=== PATIENT | male | born 1945 | race Caucasian/White ===

== ENCOUNTER 2016-12-11 12:06 | Inpatient (IN) | payer OTHER, MEDICARE ==
[~2016-12-11] VITALS: Ht 180.3 cm; Wt 90.7 kg
[~2016-12-11 12:06] MED LIST: ACTOPLUS MET 851 TAB PO; FLOMAX(MONOGRA0.4 MG PO; KEFLEX500 MG PO; LOSARTAN POTASS50 MG PO; NORVASC 5MG TAB5 MG PO; PERCOCET 325 MG1 TA2 PO; PIOGLITAZONE PO; SIMVASTATIN10 MG PO
--- NOTE | 2016-12-11 12:10 | NUR ---
BS 335
--- NOTE | 2016-12-11 12:14 | NUR ---
PT STATES HIS BS IS HIGH 335 IN TRIAGE. PT STATSE HE WAS SHAKING AND HIS DID HIS BS AND HE WAS OVER 300. PT STATES HE IS CURRENTLY TAKING ACTOS PLUS.
--- NOTE | 2016-12-11 12:21 | NUR ---
PT MEDICATED FOR FEVER IN TRIAGE PT C/O FREQUENT URINATION GIVEN CUP FOR SPEC.
--- NOTE | 2016-12-11 13:26 | NUR ---
APPRECIATE TRIAGE NOTE. PT AMBUALTORY TO ROOM 16. BLOOD DRAW IN PROGRES AT THIS TIME.
--- NOTE | 2016-12-11 13:36 | NUR ---
ASHLEY MELGOZA TO BEDSIDE FOR EVAL.
--- NOTE | 2016-12-11 13:41 | NUR ---
BLOOD DRAWN AND SENT TO LAB BY THIS MST. SST, LAV, BLUE, MAC
[2016-12-11 13:49] LABS: ABSOLUTE BASOPHIL COUNT 0 /CUMM (0.0-0.2); ABSOLUTE EOSINOPHIL COUNT 0 /CUMM (0.0-0.7); ABSOLUTE GRANULOCYTE CT 2.6 /CUMM (1.4-6.5); ABSOLUTE LYMPH COUNT 0.3 /CUMM (1.2-3.4); ABSOLUTE MONOCYTE COUNT 0.5 /CUMM (0.10-0.60); BASOPHIL % 0.4 % (0.0-2.0); EOSINOPHIL % 0.1 % (0-5); GRANULOCYTE % 76.9 % (42.2-75.2); HEMATOCRIT 31.2 % (42-52); MEAN CORPUSCULAR HGB 30.2 PG (27.0-31.0); MEAN CORPUSCULAR HGB CONC 34.2 G/DL (33.0-37.0); MEAN CORPUSCULAR VOLUME 88.4 FL (80.0-94.0); MEAN PLATELET VOLUME 9.9 FL (7.4-10.4); PLATELET COUNT 93 /CUMM (130-400); RBC DISTRIBUTION WIDTH 14.2 % (11.5-14.5); RED BLOOD CELL CT 3.52 /CUMM (4.70-6.10); WHITE BLOOD CELL COUNT 3.3 /CUMM (4.8-10.8)
[2016-12-11] MEDS ORDERED: AMLODIPINE BESYL5 M1 PO (14:14)
[2016-12-11] MEDS ORDERED: SIMVASTATIN10 M1 PO (14:14)
[2016-12-11] MEDS ORDERED: MYRBETRIQ25 M1 PO (14:15)
[2016-12-11] MEDS ORDERED: ELIQUIS5 M1 PO (14:15)
[2016-12-11] MEDS ORDERED: BENICAR40 M1 PO (14:16)
[2016-12-11] MEDS ORDERED: ACTOPLUS MET 11 EAC1 PO (14:16)
[2016-12-11] MEDS ORDERED: FINASTERIDE5 M1 PO (14:17)
--- NOTE | 2016-12-11 14:52 | NUR ---
PT AMBULATORY MULTIPLE TIMES TO BATHROOM. APPEARS ANXIOUS.
--- NOTE | 2016-12-11 15:42 | NUR ---
PT COMPLAINING OF FEELING VERY COLD, NOTED TO BE SHAKING AT THIS TIME. PT PROVIDED WITH MULTIPLE BLANKETS FOR COMFORT. TEMP 100.8 AT THIS TIME, ASHLEY MELGOZA UPDATED.
--- NOTE | 2016-12-11 16:11 | ED GENERAL ADULT ---
History of Present Illness General Chief Complaint: General Adult Stated Complaint: STATES BS HIGH WEAKNESS FEVER Source: patient, family, old records Exam Limitations: no limitations Vital Signs & Intake/Output Vital Signs & Intake/Output Vital Signs Date Time Temp Pulse Resp B/P Pulse O2 O2 Flow FiO2 Ox Delivery Rate 12/11 1543 100.8 12/11 1444 100.0 68 18 173/76 98 Room Air 12/11 1220 102.2 12/11 1216 102.2 90 16 162/84 98 Room Air Allergies Coded Allergies: venom-honey bee (BEE VENOM (HONEY BEE)) (Severe, ANAPHYLAXIS 11/30/15) aspirin (SWOLLEN FACE - CANT SEE 11/30/15) hornet venom (ANAPHYLAXIS 12/11/16) Reconcile Medications Amlodipine Besylate 5 MG TABLET 1 TAB PO DAILY HEART/BP (Reported) Apixaban (Eliquis) 5 MG TABLET 1 TAB PO BID BLOOD THINNER (Reported) Finasteride 5 MG TABLET 1 TAB PO DAILY PROSTATE (Reported) Mirabegron (Myrbetriq) 25 MG TAB.ER.24H 1 TAB PO DAILY BLADDER (Reported) Olmesartan Medoxomil (Benicar) 40 MG TABLET 1 TAB PO DAILY BP (Reported) Pioglitazone HCl/Metformin HCl (Actoplus Met 15 MG-850 MG Tab) 15 MG-850 MG TABLET 1 TAB PO BID DM (Reported) Simvastatin (Simvastatin*) 10 MG TABLET 1 TAB PO QHS CHOLESTEROL (Reported) Triage Note: PT STATES HIS BS IS HIGH 335 IN TRIAGE. PT STATSE HE WAS SHAKING AND HIS DID HIS BS AND HE WAS OVER 300. PT STATES HE IS CURRENTLY TAKING ACTOS PLUS Triage Nurses Notes Reviewed? yes Onset: Abrupt Duration: day(s): (few), constant, getting worse Timing: recent history Injury Environment: home No Modifying Factors: none HPI: 71-year-old male comes into emergency room with complaints of shaking chills body aches chills and some joint pain. Symptoms began going on for the past few days. Denies any cough runny nose congestion. Patient has had an increased frequency with urination. Nothing seems to make the symptoms better. Symptoms have gotten progressively worse today. No tick bites that he is aware of. (MARIELLE HARRY) Past History Travel History Traveled to [place] past 21 day No Medical History Any Pertinent Medical History? see below for history Neurological: NONE EENT: NONE Cardiovascular: AFIB, CAD, hypertension, hyperlipidemia, SICK SINUS SYNDROME Respiratory: NONE Gastrointestinal: NONE Hepatic: NONE Renal: nephrolithiasis Musculoskeletal: osteoarthritis, HAIRLINE FRACTURES RIBS Psychiatric: NONE Endocrine: diabetes Blood Disorders: NONE Cancer(s): NONE Other Medical Hx: BPH Surgical History Surgical History: hernia repair-incisional, PACEMAKER LITHOTRIPSY Psychosocial History Who do you live with Spouse What is your primary language Faroese Tobacco Use: Never used ETOH Use: denies use Illicit Drug Use: denies illicit drug use Family History Hx Contributory? No (MARIELLE HARRY) Review of Systems Review of Systems Constitutional: Reports: see HPI. EENTM: Reports: no symptoms. Respiratory: Reports: no symptoms. Cardiovascular: Reports: no symptoms. GI: Reports: no symptoms. Genitourinary: Reports: see HPI. Musculoskeletal: Reports: see HPI. Skin: Reports: no symptoms. Neurological/Psychological: Reports: no symptoms. Hematologic/Endocrine: Reports: no symptoms. Immunologic/Allergic: Reports: no symptoms. All Other Systems: Reviewed and Negative (MARIELLE HARRY) Physical Exam Physical Exam General Appearance: well developed/nourished, alert, awake, mild distress Head: atraumatic, normal appearance Eyes: Bilateral: normal appearance, EOMI. Ears, Nose, Throat: normal pharynx, normal ENT inspection, hearing grossly normal Neck: normal inspection, full range of motion Respiratory: normal breath sounds, no respiratory distress Cardiovascular: regular rate/rhythm, tachycardia Gastrointestinal: soft Back: normal inspection Extremities: normal inspection, normal range of motion, no edema Neurologic/Psych: awake, alert, oriented x 3, normal gait Skin: intact, normal color Core Measures ACS in differential dx? No CVA/TIA Diagnosis: No Severe Sepsis Present: No Septic Shock Present: No (MARIELLE HARRY) Progress Differential Diagnoses I considered the following diagnoses in my evaluation of the patient: Ehrlichia chaffeensis, and human granulocytic anaplasmosis , Lyme disease, sepsis, viral syndrome, [place] spotted fever, Plan of Care: Orders Procedure Date/time Status Regular Diet 12/11 D Active Patient Data 12/11 161 Active OXYGEN SETUP (GEN) 12/11 161 Active Saline Lock 12/11 161 Active Admit to inpatient 12/11 161 Active Vital Signs 12/11 1613 Active Activity/Ambulation 12/11 1613 Active Code Status 12/11 1613 Active Add-on Test (ER Only) 12/11 1610 Active RAPID VIRAL INFLUENZA A 12/11 1339 Complete BLOOD CULTURE 12/11 1332 Active EKG 12/11 1332 Active TROPONIN LEVEL 12/11 1238 Complete LACTIC ACID 12/11 1238 Complete COMPREHENSIVE METABOLIC PANEL 12/11 1238 Complete CBC WITHOUT DIFFERENTIAL 12/11 1238 Complete URINALYSIS 12/11 1228 Complete Current Medications Sig/Titus Start time Last Medication Dose Stop Time Status Admin Doxycycline Hyclate 100 MG ONCE ONE 12/11 1615 AC (Vibramycin) 12/11 1720 Sodium Chloride 100 ML (Normal Saline 0.9%) Laboratory Tests 12/11/16 1334: Anion Gap 11, Estimated GFR > 60, BUN/Creatinine Ratio 19.1, Glucose 310 H, Lactic Acid 1.2, Calcium 9.1, Total Bilirubin 0.9, AST 35, ALT 47, Alkaline Phosphatase 102, Troponin I 0.01, Total Protein 6.2 L, Albumin 3.7, Globulin 2.5, Albumin/Globulin Ratio 1.5, CBC w Diff NO MAN DIFF REQ, RBC 3.52 L, MCV 88.4, MCH 30.2, RDW 14.2, MPV 9.9, Gran % 76.9 H, Lymphocytes % 7.8 L, Monocytes % 14.8 H, Eosinophils % 0.1, Basophils % 0.4, Absolute Granulocytes 2.6, Absolute Lymphocytes 0.3 L, Absolute Monocytes 0.5, Absolute Eosinophils 0 , Absolute Basophils 0, PUBS MCHC 34.2 12/11/16 1332: Lactic Acid Cancelled, Troponin I Cancelled 12/11/16 1236: Urinalysis LIGHT H, Urine Color YEL, Urine Clarity CLEAR, Urine pH 6.0, Ur Specific [place] 1.010, Urine Protein TRACE H, Urine Ketones TRACE H, Urine Nitrite NEG, Urine Bilirubin NEG, Urine Urobilinogen 0.2, Ur Leukocyte Esterase NEG, Ur Microscopic SEDIMENT EXAMINED, Urine RBC 1-3, Urine Bacteria RARE H, Urine Hemoglobin TRACE-INTACT H, Urine Glucose >=1000 H Microbiology 12/11 1424 NASOPHARYN: Influenza Virus A & B Rapid Smear - COMP 12/11 1356 BLOOD: Blood Culture - RECD 12/11 1342 BLOOD: Blood Culture - RECD Initial ED EKG: rate (60), pacemaker rhythm (MARIELLE HARRY) Departure Departure Disposition: STILL A PATIENT Condition: Stable Clinical Impression Primary Impression: Ehrlichiosis Secondary Impressions: Anemia, Leukopenia, Thrombocytopenia Referrals: TISHA WAGNER MD (PCP/Family) Departure Forms: Customer Survey General Discharge Information Admission Note Spoke With: TISHA WAGNER MD Documentation of Exam: Documentation of any treatments & extenuating circumstances including Concerns Regarding Discharge (functional status, medication knowledge or non-compliance, living conditions, etc.) that warrant an admission rather than observation: I feel this patient likely has Ehrlichia chaffeensis or human granulocytic anaplasmosis or minus disease. Patient will require IV doxycycline. Patient is febrile. Clinically does not look well. Patient do poorly as an outpatient. I feel patient required infectious disease consultation. IV fluids. Patient is thrombocytopenic. Repeat labs. Patient would do poorly as an outpatient. (MARIELLE HARRY) PA/DANCE ENTERTAINER Co-Sign Statement Statement: ED Attending supervision documentation- x I saw and evaluated the patient. I have also reviewed all the pertinent lab results and diagnostic results. I agree with the findings and the plan of care as documented in the PA's/DANCE ENTERTAINER's documentation. [] I have reviewed the ED Record and agree with the PA's/DANCE ENTERTAINER's documentation. [] Additions or exceptions (if any) to the PAs/DANCE ENTERTAINER's note and plan are summarized below: [] (SERGO BROWN,DORITA) Critical Care Note Critical Care Note Critical Care Time: non-applicable (MARIELLE HARRY)
--- NOTE | 2016-12-11 16:17 | NUR ---
PHARMACY CALLED FOR ANTIBIOTICS.
--- NOTE | 2016-12-11 17:04 | NUR ---
HOUSE STAFF TO BEDSIDE FOR EVAL.
--- NOTE | 2016-12-11 17:56 | NUR ---
PT HAS BED ASSIGNMENT 219-1. RN NOTIFIED.
--- NOTE | 2016-12-11 18:15 | History & Physical ---
See Addendum HECTOR BROWNSRAVAN 12/11/16 1180: General Information and HPI History of Present Illness: 71 year old man with past medical history of atrial fibrillation on eliquis, sick sinus syndrome s/p AICD, CAD, HTN, HLD, Nephrolithiasis, osteoarthritis, and NIDDM seen for evaluation of weakness, chills, and urinary frequency. Patient reports intermittent periods of fatigue, weakness and chills over the past 3 days. He noticed two "bites" on his body approximately one week ago that have improved in appearance but are still present and charactized and nonpainful but itchy. There is no reported drainage, or witnessed bug/vector, rash, or retained debris. 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 He denies any recent known tick bite. He denies any recent travel, new medications, or sick contacts. Otherwise he denies any blurred/double vision, lightheadedness/dizziness, neck stiffness, headache, chest pain, palpitations, shortness of breath, cough, nausea, vomiting, diarrhea. Allergies/Medications Allergies: Coded Allergies: venom-honey bee (BEE VENOM (HONEY BEE)) (Severe, ANAPHYLAXIS 11/30/15) aspirin (SWOLLEN FACE - CANT SEE 11/30/15) hornet venom (ANAPHYLAXIS 12/11/16) Home Med list Amlodipine Besylate 5 MG TABLET 1 TAB PO DAILY HEART/BP (Reported) Apixaban (Eliquis) 5 MG TABLET 1 TAB PO BID BLOOD THINNER (Reported) Finasteride 5 MG TABLET 1 TAB PO DAILY PROSTATE (Reported) Mirabegron (Myrbetriq) 25 MG TAB.ER.24H 1 TAB PO DAILY BLADDER (Reported) Olmesartan Medoxomil (Benicar) 40 MG TABLET 1 TAB PO DAILY BP (Reported) Pioglitazone HCl/Metformin HCl (Actoplus Met 15 MG-850 MG Tab) 15 MG-850 MG TABLET 1 TAB PO BID DM (Reported) Simvastatin (Simvastatin*) 10 MG TABLET 1 TAB PO QHS CHOLESTEROL (Reported) Past History Travel History Traveled to [place] past 21 day No Medical History Neurological: NONE EENT: NONE Cardiovascular: AFIB, CAD, hypertension, hyperlipidemia, SICK SINUS SYNDROME Respiratory: NONE Gastrointestinal: NONE Hepatic: NONE Renal: nephrolithiasis Musculoskeletal: osteoarthritis, HAIRLINE FRACTURES RIBS Psychiatric: NONE Endocrine: diabetes Blood Disorders: NONE Cancer(s): NONE Other Medical Hx: BPH Surgical History Surgical History: hernia repair-incisional, PACEMAKER LITHOTRIPSY Past Family/Social History Psychosocial History Where do you live? Home Who Do You Live With? spouse ETOH Use: denies use Illicit Drug Use: denies illicit drug use Review of Systems Review of Systems Constitutional: Reports: see HPI. Exam & Diagnostic Data Last 24 Hrs of Vital Signs/I&O Vital Signs Date Time Temp Pulse Resp B/P Pulse O2 O2 Flow FiO2 Ox Delivery Rate 12/11 2040 60 120/55 12/11 1926 100.3 71 20 112/50 94 Room Air 12/11 1842 100.6 70 18 125/61 96 Room Air 12/11 1633 102.7 81 18 176/78 100 Room Air 12/11 1543 100.8 12/11 1444 100.0 68 18 173/76 98 Room Air 12/11 1220 102.2 12/11 1216 102.2 90 16 162/84 98 Room Air Intake & Output 12/11 1600 12/11 0800 12/11 0000 Intake Total 1000 Output Total Balance 1000 Intake, IV 1000 Patient 90.718 kg Weight Physical Exam General Appearance Alert, Oriented X3, Cooperative, No Acute Distress Skin 0.5cm circular lesion with mild erythema on left back/flank and similar lesion on suprapubic region HEENT Atraumatic, EOMI, Mucous Membr. moist/pink Neck Supple Cardiovascular Normal S1, Normal S2, No Murmurs Lungs Clear to Auscultation, Normal Air Movement Abdomen Normal Bowel Sounds, Soft, No Tenderness, No Hepatospenomegaly, No Masses Neurological Normal Speech, Strength at 5/5 X4 Ext, Normal Tone, Sensation Intact, Cranial Nerves 3-12 NL Extremities No Clubbing, No Cyanosis, No Edema, Normal Pulses, No Tenderness/ Swelling Vascular Normal Pulses, Pulses Symmetrical Last 24 Hrs of Labs/Kan: Laboratory Tests 12/11/16 1632: Lactic Acid Cancelled 12/11/16 1334: Anion Gap 11, Estimated GFR > 60, BUN/Creatinine Ratio 19.1, Glucose 310 H, Hemoglobin A1c Pending, Lactic Acid 1.2, Calcium 9.1, Total Bilirubin 0.9, AST 35, ALT 47, Alkaline Phosphatase 102, Troponin I 0.01, Total Protein 6.2 L, Albumin 3.7, Globulin 2.5, Albumin/Globulin Ratio 1.5, CBC w Diff NO MAN DIFF REQ, RBC 3.52 L, MCV 88.4, MCH 30.2, RDW 14.2, MPV 9.9, Gran % 76.9 H, Lymphocytes % 7.8 L, Monocytes % 14.8 H, Eosinophils % 0.1, Basophils % 0.4, Absolute Granulocytes 2.6, Absolute Lymphocytes 0.3 L, Absolute Monocytes 0.5, Absolute Eosinophils 0, Absolute Basophils 0, PUBS MCHC 34.2 12/11/16 1332: Lactic Acid Cancelled, Troponin I Cancelled 12/11/16 1236: Urinalysis LIGHT H, Urine Color YEL, Urine Clarity CLEAR, Urine pH 6.0, Ur Specific [place] 1.010, Urine Protein TRACE H, Urine Ketones TRACE H, Urine Nitrite NEG, Urine Bilirubin NEG, Urine Urobilinogen 0.2, Ur Leukocyte Esterase NEG, Ur Microscopic SEDIMENT EXAMINED, Urine RBC 1-3, Urine Bacteria RARE H, Urine Hemoglobin TRACE-INTACT H, Urine Glucose >=1000 H Microbiology 12/11 1424 NASOPHARYN: Influenza Virus A & B Rapid Smear - COMP 12/11 1356 BLOOD: Blood Culture - RECD 12/11 1342 BLOOD: Blood Culture - RECD Diagnostic Data EKG Results Paced rhythm Assessment/Plan Assessment: 71 year old man with multiple medical problems significant for an extensive cardiovascular history and occupational exposure to outdoors seen for evaluation of vague systemic complaints consisting of chills, weakness, urinary frequency without pain. Patient was found to be febrile to 102.7 max and hypertensive but other had vitals within normal limits. Patient has a history of BPH but had a normal urinalysis. Given his exposure the outdoors it is possible that patient has contracted a tickborne illness, but alternative diagnoses such as prostatis or an unidentified infection should be considered. Patient is to be admitted to the general medicine floor for further evaluation. Weakness/Chills/Urinary Frequency/Fever, Possible Tick Borne Illness/ Thrombocytopenia Patient with chills and weakness found to be febrile to 102.7 in the ED. Patient was empirically started on intravenous Doxycycline by ED staff for suspicion of a tick borne illness given patients vague symptoms and thromboycytopenia and his history of exposure to outdoors. Patient denies any known tick bites. -General Medicine -Doxycyline 100mg IV Daily -ID Consult -Daily CBC Hypertension -Amlodipine 5mg PO Daily -Losartan 100mg PO Daily Non-insulin Dependent Diabetes Mellitus -Accuchecks TIDAC/HS -Hold oral hypoglycemics -Novolog SSI -Levemir 9 units SC BID Atrial Fibrillation on Eliquis, SSS s/p PM, CAD-Eliquis 5mg PO BID Hyperlipidemia-Atorvastatin 5mg PO Daily BPH/History of Nephrolithiasis-Finasteride 5mg PO Daily Pain Plan-Acetaminophen Diet- Diabetic Diet DVT Ppx-ALPS Code Status- FULL CODE As Ranked By This Provider Problem List: 1. Thrombocytopenia Core Measures/Miscellaneous Acute Coronary Syndrome ACS Diagnosis: No Cerebrovascular Accident CVA/TIA Diagnosis: No Congestive Heart Failure CHF Diagnosis: No Venous Thromboembolism VTE Risk Factors: Acute medical illness, Age > 40 No [facility] VTE prophylaxis d/t: No contraindications No VTE Pharm Prophylaxis d/t: Platelets below ref range VTE Diagnosis: No VTE Type: NONE VTE Confirmed by (Test): NONE Severe Sepsis Severe Sepsis Present: No Septic Shock Septic Shock Present: No Miscellaneous Documentation Attending Case Discussed With: TISHA WAGNER MD Primary Care Physician: TISHA WAGNER MD Patient sees these Specialists Dr Shady Cifuentes Level of Patient Care: General Medicine Consults Needed: Consulting Specialty: Infectious Disease SIXTO BROWNPRATEEK 12/11/16 1851: Resident Review Statement Resident Statement: examined this patient, discussed with video editing intern, agreed with video editing intern, discussed with family, reviewed EMR data (avail), discussed with nursing , discussed with case mgmt, reviewed images, amended to note Other Findings: Mayur is a 71-year-old man with a history of atrial fibrillation sick sinus syndrome, status post pacemaker. He expresses history of 24-hour history of febrile illness shaking tremors. He expresses some history of tick exposure in the past, and 2 blood bites, one in the suprapubic area, and the other in the left flank area of the back region. There is no rash. He denies any arthralgias. Or any other symptoms such as cough shortness of breath, abdominal discomfort nausea vomiting diarrhea, dysuria. By the patient's own account, he is a noncompliant diabetic. He never checks his blood sugars except when he sees his doctor. He is only on Actos. Urinalysis reveals significant glucosuria. Patient also endorses history of prior frequency without urgency. Plan: Admit the patient general medicine. Await blood cultures, and tickborne illness serologies. Await infectious disease consultation. Continue doxycycline in the meantime. Tylenol for significant fever greater than 101F. Supportive treatment. Check hemoglobin A1c. DVT prophylaxis. Full code.
--- NOTE | 2016-12-11 19:06 | NUR ---
REPORT GIVEN TO NIKKY PARKINSON. [facility]RIBUT[facility] CALLED FOR PT TRANSPORT.
--- NOTE | 2016-12-11 19:11 | Admission Certification ---
Admission Certification Certification Statement - As attending physician, I certify that at the time of - admission, based on clinical presentation, severity of - symptoms, need for further diagnostic testing and - therapeutic interventions, and risk of adverse outcomes - without in-hospital treatment, in my clinical assessment, - this patient requires an acute hospital stay for a minimum - of two nights or longer. I have also considered psychsocial - factors such as support system, advanced age, financial - issues, cognitive issues, and failed out-patient treatments, - past re-admission history, safety of patient, and lack of - compliance as applicable. Specific rationale supporting this admission is: weakness,fever low white count and platelets elevated sugars possible tick bourne disease.
--- NOTE | 2016-12-11 19:17 | PN- Att Addend ---
Attending Addendum Attending Brief Note 71 year old diabetic male not feeling well for 1-2 days feeling cold weak has a fever elevated sugars called the office and was advised to come to the ER all blood work pertinent ordered after started on antibiotics will get ID imput. Intake & Output 12/11 1600 12/11 0800 12/11 0000 Intake Total 1000 Output Total Balance 1000 Intake, IV 1000 Patient 200 lb Weight Vital Signs Date Time Temp Pulse Resp B/P Pulse O2 O2 Flow FiO2 Ox Delivery Rate 12/11 1842 100.6 70 18 125/61 96 Room Air 12/11 1633 102.7 81 18 176/78 100 Room Air 12/11 1543 100.8 12/11 1444 100.0 68 18 173/76 98 Room Air 12/11 1220 102.2 12/11 1216 102.2 90 16 162/84 98 Room Air Laboratory Tests 12/11 12/11 12/11 1632 1334 1332 Chemistry Sodium (137 - 145 mmol/L) 131 L Potassium (3.5 - 5.1 mmol/L) 4.3 Chloride (98 - 107 mmol/L) 98 Carbon Dioxide (22 - 30 mmol/L) 22 Anion Gap (5 - 16) 11 BUN (9 - 20 mg/dL) 21 H Creatinine (0.7 - 1.2 mg/dL) 1.1 Estimated GFR (>60 ml/min) > 60 BUN/Creatinine Ratio (7 - 25 %) 19.1 Glucose (65 - 99 mg/dL) 310 H Hemoglobin A1c (4.2 - 5.8 %) Pending Lactic Acid (0.7 - 2.1 mmol/L) Cancelled 1.2 Cancelled Calcium (8.4 - 10.2 mg/dL) 9.1 Total Bilirubin (0.2 - 1.3 mg/dL) 0.9 AST (17 - 59 U/L) 35 ALT (21 - 72 U/L) 47 Alkaline Phosphatase (< 127 U/L) 102 Troponin I (<0.11 ng/ml) 0.01 Cancelled Total Protein (6.3 - 8.2 g/dL) 6.2 L Albumin (3.5 - 5.0 g/dL) 3.7 Globulin (1.9 - 4.2 gm/dL) 2.5 Albumin/Globulin Ratio (1.1 - 2.2 %) 1.5 Hematology CBC w Diff NO MAN DIFF REQ WBC (4.8 - 10.8 /CUMM) 3.3 L RBC (4.70 - 6.10 /CUMM) 3.52 L Hgb (14.0 - 18.0 G/DL) 10.6 L Hct (42 - 52 %) 31.2 L MCV (80.0 - 94.0 FL) 88.4 MCH (27.0 - 31.0 PG) 30.2 RDW (11.5 - 14.5 %) 14.2 Plt Count (130 - 400 /CUMM) 93 L MPV (7.4 - 10.4 FL) 9.9 Gran % (42.2 - 75.2 %) 76.9 H Lymphocytes % (20.5 - 51.1 %) 7.8 L Monocytes % (1.7 - 9.3 %) 14.8 H Eosinophils % (0 - 5 %) 0.1 Basophils % (0.0 - 2.0 %) 0.4 Absolute Granulocytes (1.4 - 6.5 /CUMM) 2.6 Absolute Lymphocytes (1.2 - 3.4 /CUMM) 0.3 L Absolute Monocytes (0.10 - 0.60 /CUMM) 0.5 Absolute Eosinophils (0.0 - 0.7 /CUMM) 0 Absolute Basophils (0.0 - 0.2 /CUMM) 0 PUBS MCHC (33.0 - 37.0 G/DL) 34.2 12/11 1236 Urines Urinalysis LIGHT H Urine Color (YEL,AMB,STR) YEL Urine Clarity (CLEAR) CLEAR Urine pH (5.0 - 8.0) 6.0 Ur Specific [place] (1.001 - 1.035) 1.010 Urine Protein (NEG,<30 MG/DL) TRACE H Urine Ketones (NEG) TRACE H Urine Nitrite (NEG) NEG Urine Bilirubin (NEG) NEG Urine Urobilinogen (0.1 - 1.0 EU/dl) 0.2 Ur Leukocyte Esterase (NEG) NEG Ur Microscopic SEDIMENT EXAMINED Urine RBC (0 - 5 /HPF) 1-3 Urine Bacteria (NEG/NONE) RARE H Urine Hemoglobin (NEG) TRACE-INTACT H Urine Glucose (N MG/DL) >=1000 H
[2016-12-11 19:26] VITALS: BP 112/50
[2016-12-11 20:40] VITALS: BP 120/55
[2016-12-11 22:15] VITALS: BP 126/62
--- NOTE | 2016-12-11 23:36 | NUR ---
1925 PATIENT ARRIVED TO FLOOR ALERT AND ORIENTED X 3. VITAL SIGNS STABLE. DENIES CHEST PAIN. + PULSES ON ROOM AIR. NO DISCOMFORT NOTED. SKIN C/D/I. BED LOW AND LOCKED. CALL LIGHT WITHIN REACH WILL CONTINUE TO MONITOR
[2016-12-12] VITALS (9 sets, daily range): BP systolic 112–192; BP diastolic 56–80
--- NOTE | 2016-12-12 00:41 | NUR ---
2200 PHYSICAL SECURITY MANAGER AWARE OF PATIENTS BLOOD SUGAR. SCHEDULED LEVEMIR GIVEN WILL CONTINUE TO MONITOR
--- NOTE | 2016-12-12 07:25 | PN- Housestaff ---
Subjective Follow-up For: Chills, weakness, rash Leukopenia Thrombocytopenia Fever Subjective: Patient seen and examined. He is seen lying flat in bed with multiple blankets over him. He appears to be mildly uncomfortable, but in no acute distress. He reports multiple awakenings last night associated with chills that quickly resolved. Additionally he admits to persistent generalized weakness/fatigue and otherwise denies any new subjective complaints. He denies any new neurologic symptoms, headache, subjective fever, chest pain, palpitations, shortness of breath, cough, nausea, vomiting, diarrhea. No overnight events reported. Review of Systems Constitutional: Reports: see HPI. Objective Last 24 Hrs of Vital Signs/I&O Vital Signs Date Time Temp Pulse Resp B/P B/P Pulse O2 O2 Flow FiO2 Mean Ox Delivery Rate 12/12 1439 100.2 80 18 144/80 92 Room Air 12/12 1311 99.5 75 20 178/66 94 Room Air 12/12 0644 98.8 59 18 140/74 95 Room Air 12/11 2215 98.6 60 19 126/62 94 Room Air 12/11 2040 60 120/55 12/11 1926 100.3 71 20 112/50 94 Room Air 12/11 1842 100.6 70 18 125/61 96 Room Air 12/11 1633 102.7 81 18 176/78 100 Room Air 12/11 1543 100.8 Intake & Output 12/12 1600 12/12 0800 12/12 0000 Intake Total 200 100 Output Total 800 200 Balance -600 -100 Intake, Oral 200 100 Output, Urine 800 200 Patient 90.718 kg Weight Physical Exam General Appearance: Alert, Oriented X3, Cooperative, No Acute Distress Other Physical Findings: General -all developed, well nourished elderly man in no acute distress HEENT - NCAT, PERRL, EOMI, anicteric sclera Cardio - S1, S2 w/o murmurs/gallops/rubs Resp - CTA bilaterally w/o wheezing/rhochi/crackles GI - soft, nontender, nondistended, bowel sounds present, 0.5 cm raised red lesion without drainage or induration on upper left flank and suprapubic area Neuro - Awake and alert, CN II - XII grossly intact Extremities -normal pulses, no cyanosis/clubbing/edema Current Medications: Current Medications Sig/Titus Start time Last Medication Dose Route Stop Time Status Admin Amlodipine Besylate 5 MG DAILY 12/12 1000 AC 12/12 PO 1034 Apixaban 5 MG BID 12/11 2200 AC 12/12 PO 1035 Atorvastatin Calcium 5 MG 1700 12/11 1700 AC PO Doxycycline Hyclate 100 MG BID 12/12 2200 CAN Sodium Chloride 100 ML IV Doxycycline Hyclate 100 MG BID 12/12 2200 AC PO Doxycycline Hyclate 100 MG DAILY 12/12 1000 DC 12/12 Sodium Chloride 100 ML IV 1035 Doxycycline Hyclate 100 MG ONCE ONE 12/11 1615 DC 12/11 Sodium Chloride 100 ML IV 12/11 1720 1655 Finasteride 5 MG DAILY 12/12 1000 AC 12/12 PO 1034 Insulin Aspart 0 TIDAC 12/12 0800 AC 12/12 SC 1409 Insulin Detemir 9 UNITS BID 12/11 2200 AC 12/12 SC 1035 Ketorolac 0 .STK-MED ONE 12/11 1651 DC Tromethamine .ROUTE Losartan Potassium 100 MG DAILY 12/12 1000 AC 12/12 PO 1034 Patient Medication 1 ED .STK-MED ONE 12/12 1355 DC Teaching ED 12/12 1356 Sodium Chloride 1,000 ML BOLUS ONE 12/11 1630 DC 12/11 IV 12/11 1729 1658 Last 24 Hrs of Lab/Kan Results Last 24 Hrs of Labs/Mics: Laboratory Tests 12/12/16 0640: Anion Gap 5, Estimated GFR 54 L, BUN/Creatinine Ratio 18.5, CBC w Diff NO MAN DIFF REQ, RBC 3.26 L, MCV 89.3, MCH 30.6, RDW 14.1, MPV 10.5 H, Gran % 60.1, Lymphocytes % 19.9 L, Monocytes % 18.9 H, Eosinophils % 0.1, Basophils % 1.0, Absolute Granulocytes 1.1 L, Absolute Lymphocytes 0.4 L, Absolute Monocytes 0.3, Absolute Eosinophils 0, Absolute Basophils 0, PUBS MCHC 34.3 12/11/16 1632: Lactic Acid Cancelled Assessment/Plan Assessment: 71 year old man with multiple medical problems significant for an extensive cardiovascular history and occupational exposure to outdoors seen for evaluation of vague systemic complaints consisting of chills, weakness, urinary frequency without pain. Patient was found to be febrile to 102.7 max and hypertensive but other had vitals within normal limits. Patient has a history of BPH but had a normal urinalysis. Given his exposure the outdoors it is possible that patient has contracted a tickborne illness, but alternative diagnoses such as prostatis or an unidentified infection should be considered. Patient is to be admitted to the general medicine floor for further evaluation. Hospital day 1 Patient reports persistence of his generalized fatigue with associated chills and otherwise denies any new subjective complaints. Patient defervesced overnight while on intravenous doxycycline. Infectious disease consult was placed this morning. Peripheral smear was inconclusive for presence of more UA for which in anaplasmosis PCR and Lyme titer was sent for suspicion of tick borne illness. Doxycycline was converted to 100 mg by mouth twice a day. patient's blood sugar remains persistently elevated while on NovoLog, we'll continue to monitor. Weakness/Chills/Urinary Frequency/Fever, Possible Tick Borne Illness/ Thrombocytopenia Patient with chills and weakness found to be febrile to 102.7 in the ED. Patient was empirically started on intravenous Doxycycline by ED staff for suspicion of a tick borne illness given patients vague symptoms and thromboycytopenia and his history of exposure to outdoors. Patient denies any known tick bites. Peripheral smear was inconclusive for any presence of more UA. -General Medicine -Doxycyline changed to 100mg PO BID -ID Consult -Daily CBC -F/U Anaplasma PCR, Lyme Titer Hypertension -Amlodipine 5mg PO Daily -Losartan 100mg PO Daily Non-insulin Dependent Diabetes Mellitus -Accuchecks TIDAC/HS -Hold oral hypoglycemics -Novolog SSI -Levemir 9 units SC BID Atrial Fibrillation on Eliquis, SSS s/p PM, CAD-Eliquis 5mg PO BID Hyperlipidemia-Atorvastatin 5mg PO Daily BPH/History of Nephrolithiasis-Finasteride 5mg PO Daily Pain Plan-Acetaminophen Diet- Diabetic Diet DVT Ppx-ALPS Code Status- FULL CODE Problem List: 1. Thrombocytopenia Pain Ratin Pain Location: None Pain Goal: Remain pain free Pain Plan: See assessment Tomorrow's Labs & Rationales: CBC - leukopenia/thrombocytopenia/anemia BEP-elevated creatinine Consulting Request: Consulting Specialty: Infectious Disease
[2016-12-12 08:07] LABS: ABSOLUTE BASOPHIL COUNT 0 /CUMM (0.0-0.2); ABSOLUTE EOSINOPHIL COUNT 0 /CUMM (0.0-0.7); ABSOLUTE GRANULOCYTE CT 1.1 /CUMM (1.4-6.5); ABSOLUTE LYMPH COUNT 0.4 /CUMM (1.2-3.4); ABSOLUTE MONOCYTE COUNT 0.3 /CUMM (0.10-0.60); EOSINOPHIL % 0.1 % (0-5); GRANULOCYTE % 60.1 % (42.2-75.2); HEMATOCRIT 29.1 % (42-52); MEAN CORPUSCULAR HGB 30.6 PG (27.0-31.0); MEAN CORPUSCULAR HGB CONC 34.3 G/DL (33.0-37.0); MEAN CORPUSCULAR VOLUME 89.3 FL (80.0-94.0); MEAN PLATELET VOLUME 10.5 FL (7.4-10.4); PLATELET COUNT 78 /CUMM (130-400); RBC DISTRIBUTION WIDTH 14.1 % (11.5-14.5); RED BLOOD CELL CT 3.26 /CUMM (4.70-6.10); WHITE BLOOD CELL COUNT 1.8 /CUMM (4.8-10.8)
--- NOTE | 2016-12-12 11:46 | Cons- Infect Disease ---
General Information and HPI Consulting Request Date of Consult: 12/12/16 Requested By: TISHA WAGNER MD Reason for Consult: Fever with leukopenia and thrombocytopenia/rule out Anaplasma Source of Information: patient, old records History of Present Illness: This is a 71-year-old man with a history of diabetes, atrial fibrillation, maintained on Eliquis, sick sinus syndrome, status post pacemaker 2 years prior to admission, nephrolithiasis, status post laser lithotripsy and ESWL, most recently one year prior to admission, and osteoarthritis, who spends a significant amount of time outdoors, admitted on December 11 with a one-day history of fevers, chills and fatigue and several lesions on his body that he attributes to bug bites. On admission he was febrile to 102.2. Laboratory data revealed a white blood cell count of 3.3, platelets 93,000, BUN/creatinine 21 and 1.1, sodium 131, with normal liver enzymes, hemoglobin A1c 10.6. Urinalysis 1-3 RBCs. He was begun on Doxycycline. He appears to have defervesced overnight and offers no new complaints at this time. Allergies/Medications Allergies: Coded Allergies: venom-honey bee (BEE VENOM (HONEY BEE)) (Severe, ANAPHYLAXIS 11/30/15) aspirin (SWOLLEN FACE - CANT SEE 11/30/15) hornet venom (ANAPHYLAXIS 12/11/16) Home Med List: Amlodipine Besylate 5 MG TABLET 1 TAB PO DAILY HEART/BP (Reported) Apixaban (Eliquis) 5 MG TABLET 1 TAB PO BID BLOOD THINNER (Reported) Finasteride 5 MG TABLET 1 TAB PO DAILY PROSTATE (Reported) Mirabegron (Myrbetriq) 25 MG TAB.ER.24H 1 TAB PO DAILY BLADDER (Reported) Olmesartan Medoxomil (Benicar) 40 MG TABLET 1 TAB PO DAILY BP (Reported) Pioglitazone HCl/Metformin HCl (Actoplus Met 15 MG-850 MG Tab) 15 MG-850 MG TABLET 1 TAB PO BID DM (Reported) Simvastatin (Simvastatin*) 10 MG TABLET 1 TAB PO QHS CHOLESTEROL (Reported) Past History Travel History Traveled to [place] past 21 day No Medical History Blood Transfusion Hx: No Neurological: NONE EENT: NONE Cardiovascular: AFIB, CAD, hypertension, hyperlipidemia, SICK SINUS SYNDROME Respiratory: NONE Gastrointestinal: NONE Hepatic: NONE Renal: nephrolithiasis Musculoskeletal: osteoarthritis, HAIRLINE FRACTURES RIBS Psychiatric: NONE Endocrine: diabetes Blood Disorders: NONE Cancer(s): NONE WASTE COLLECTION DRIVER/Reproductive: NONE Other Medical Hx: BPH History of MRSA: No History of VRE: No History of CDIFF: No Isolation History: Standard Influenza Vaccine: 07/26/16 Surgical History Surgical History: hernia repair-incisional, PACEMAKER LITHOTRIPSY Psychosocial History Where Do You Live? Home Who Do You Live With? spouse Smoking Status: Never Smoked ETOH Use: denies use Illicit Drug Use: denies illicit drug use Review of Systems Review of Systems All Other Systems: Reviewed and Negative Exam & Diagnostic Data Last 24 Hrs of Vital Signs/I&O Vital Signs Date Time Temp Pulse Resp B/P B/P Pulse O2 O2 Flow FiO2 Mean Ox Delivery Rate 12/12 0644 98.8 59 18 140/74 95 Room Air 12/11 2215 98.6 60 19 126/62 94 Room Air 12/11 2040 60 120/55 12/11 1926 100.3 71 20 112/50 94 Room Air 12/11 1842 100.6 70 18 125/61 96 Room Air 12/11 1633 102.7 81 18 176/78 100 Room Air 12/11 1543 100.8 12/11 1444 100.0 68 18 173/76 98 Room Air 12/11 1220 102.2 12/11 1216 102.2 90 16 162/84 98 Room Air Intake & Output 12/12 1600 12/12 0800 12/12 0000 Intake Total 200 100 Output Total 800 200 Balance -600 -100 Intake, Oral 200 100 Output, Urine 800 200 Patient 200 lb Weight Physical Exam Other Physical Findings: He is awake and alert in no acute distress. MAXIMUM TEMPERATURE 102.7. Skin reveals several papular lesions, one over the left flank and one in the suprapubic area, nontender to palpation. HEENT exam is negative. Neck is supple with no adenopathy. Chest pacemaker in the left upper chest with no inflammation at the site. Lungs are clear. Heart regular rhythm with no murmur. Abdomen is soft, nontender with positive bowel sounds. Back no CVA tenderness. Extremities no cyanosis, clubbing or edema. Neuro is without focality. Last 24 Hours of Lab Results: Laboratory Tests 12/12 12/11 0640 1632 Chemistry Sodium (137 - 145 mmol/L) 135 L Potassium (3.5 - 5.1 mmol/L) 4.2 Chloride (98 - 107 mmol/L) 102 Carbon Dioxide (22 - 30 mmol/L) 28 Anion Gap (5 - 16) 5 BUN (9 - 20 mg/dL) 24 H Creatinine (0.7 - 1.2 mg/dL) 1.3 H Estimated GFR (>60 ml/min) 54 L BUN/Creatinine Ratio (7 - 25 %) 18.5 Lactic Acid Cancelled Hematology CBC w Diff NO MAN DIFF REQ WBC (4.8 - 10.8 /CUMM) 1.8 L RBC (4.70 - 6.10 /CUMM) 3.26 L Hgb (14.0 - 18.0 G/DL) 10.0 L Hct (42 - 52 %) 29.1 L MCV (80.0 - 94.0 FL) 89.3 MCH (27.0 - 31.0 PG) 30.6 RDW (11.5 - 14.5 %) 14.1 Plt Count (130 - 400 /CUMM) 78 L MPV (7.4 - 10.4 FL) 10.5 H Gran % (42.2 - 75.2 %) 60.1 Lymphocytes % (20.5 - 51.1 %) 19.9 L Monocytes % (1.7 - 9.3 %) 18.9 H Eosinophils % (0 - 5 %) 0.1 Basophils % (0.0 - 2.0 %) 1.0 Absolute Granulocytes (1.4 - 6.5 /CUMM) 1.1 L Absolute Lymphocytes (1.2 - 3.4 /CUMM) 0.4 L Absolute Monocytes (0.10 - 0.60 /CUMM) 0.3 Absolute Eosinophils (0.0 - 0.7 /CUMM) 0 Absolute Basophils (0.0 - 0.2 /CUMM) 0 PUBS MCHC (33.0 - 37.0 G/DL) 34.3 12/11 12/11 1334 1332 Chemistry Sodium (137 - 145 mmol/L) 131 L Potassium (3.5 - 5.1 mmol/L) 4.3 Chloride (98 - 107 mmol/L) 98 Carbon Dioxide (22 - 30 mmol/L) 22 Anion Gap (5 - 16) 11 BUN (9 - 20 mg/dL) 21 H Creatinine (0.7 - 1.2 mg/dL) 1.1 Estimated GFR (>60 ml/min) > 60 BUN/Creatinine Ratio (7 - 25 %) 19.1 Glucose (65 - 99 mg/dL) 310 H Hemoglobin A1c (4.2 - 5.8 %) 10.6 H Lactic Acid (0.7 - 2.1 mmol/L) 1.2 Cancelled Calcium (8.4 - 10.2 mg/dL) 9.1 Total Bilirubin (0.2 - 1.3 mg/dL) 0.9 AST (17 - 59 U/L) 35 ALT (21 - 72 U/L) 47 Alkaline Phosphatase (< 127 U/L) 102 Troponin I (<0.11 ng/ml) 0.01 Cancelled Total Protein (6.3 - 8.2 g/dL) 6.2 L Albumin (3.5 - 5.0 g/dL) 3.7 Globulin (1.9 - 4.2 gm/dL) 2.5 Albumin/Globulin Ratio (1.1 - 2.2 %) 1.5 Hematology CBC w Diff NO MAN DIFF REQ WBC (4.8 - 10.8 /CUMM) 3.3 L RBC (4.70 - 6.10 /CUMM) 3.52 L Hgb (14.0 - 18.0 G/DL) 10.6 L Hct (42 - 52 %) 31.2 L MCV (80.0 - 94.0 FL) 88.4 MCH (27.0 - 31.0 PG) 30.2 RDW (11.5 - 14.5 %) 14.2 Plt Count (130 - 400 /CUMM) 93 L MPV (7.4 - 10.4 FL) 9.9 Gran % (42.2 - 75.2 %) 76.9 H Lymphocytes % (20.5 - 51.1 %) 7.8 L Monocytes % (1.7 - 9.3 %) 14.8 H Eosinophils % (0 - 5 %) 0.1 Basophils % (0.0 - 2.0 %) 0.4 Absolute Granulocytes (1.4 - 6.5 /CUMM) 2.6 Absolute Lymphocytes (1.2 - 3.4 /CUMM) 0.3 L Absolute Monocytes (0.10 - 0.60 /CUMM) 0.5 Absolute Eosinophils (0.0 - 0.7 /CUMM) 0 Absolute Basophils (0.0 - 0.2 /CUMM) 0 PUBS MCHC (33.0 - 37.0 G/DL) 34.2 12/11 1236 Urines Urinalysis LIGHT H Urine Color (YEL,AMB,STR) YEL Urine Clarity (CLEAR) CLEAR Urine pH (5.0 - 8.0) 6.0 Ur Specific [place] (1.001 - 1.035) 1.010 Urine Protein (NEG,<30 MG/DL) TRACE H Urine Ketones (NEG) TRACE H Urine Nitrite (NEG) NEG Urine Bilirubin (NEG) NEG Urine Urobilinogen (0.1 - 1.0 EU/dl) 0.2 Ur Leukocyte Esterase (NEG) NEG Ur Microscopic SEDIMENT EXAMINED Urine RBC (0 - 5 /HPF) 1-3 Urine Bacteria (NEG/NONE) RARE H Urine Hemoglobin (NEG) TRACE-INTACT H Urine Glucose (N MG/DL) >=1000 H Last 24 Hours of Kan Results: Blood cultures 2 December 11 negative Rapid flu swab December 11 negative Assessment/Plan Assessment/Plan Impression: This is a 71-year-old man with a history of diabetes, atrial fibrillation, sick sinus syndrome, status post pacemaker, nephrolithiasis and osteoarthritis admitted on December 11 with a one-day history of fevers and chills and found to be febrile with leukopenia and thrombocytopenia but with no obvious focus of infection. The possibility of Anaplasmosis, for which he has been empirically started on Doxycycline, must be considered, particularly with his extensive outdoor exposure and presumed exposure to bugs, with several papular lesions noted. Co-infection with Lyme disease can occur in up to 25% of patients with Anaplasma, and treatment with Doxycycline will treat both of these infections. Of note he has been thrombocytopenic on previous occasions, which appears to be unexplained. Suggestion: 1. Would review peripheral smear for morulae within the white blood cells ( discussed with the Hematology lab) 2. Serum for PCR for Anaplasma 3. Lyme titer 4. Continue Doxycycline but change to 100 mg po every 12 hours Consult Acknowledgment - Thank you for your consult request.
--- NOTE | 2016-12-12 13:12 | NUR ---
NURSING NOTE: PATIENT NOTICED TO HAVE CHILLS AT THIS TIME. PATIENT'S TEETH CHATTERING. ORAL TEMPERATURE AT THIS TIME 99.5. WATER ATTENDANT NOTIFIED.
--- NOTE | 2016-12-12 16:00 | NUR ---
NURSING NOTE: NURSE CALLED INTO PATIENTS ROOM, PATIENT C/O HE FELT VERY HOT. ORAL TEMP AT THIS TIME 102.2. PHARMACY OPERATIONS SPECIALIST 129 NOTIFIED. BS AND FULL SET OF VITALS TAKEN. BS <50, BP 192/68, HR 110, O2 SAT 88% ROOM AIR, R 22. ORDER FOR 1 AMP D50 TO GIVE NOW. AND PHARMACY OPERATIONS SPECIALIST TO COME TO BEDSIDE. WILL CONTINUE TO MONITOR.
--- NOTE | 2016-12-12 16:15 | NUR ---
NURSING NOTE: AFTER 1 AMP D50 GIVEN, PATIENT MORE AWAKE. MACHINE TOOL MECHANIC AND TOOLROOM HELPER AT BEDSIDE. VITALS NOW BP 140/68, HR 88, 02 94% ON 2L, R 20. IV TYLENOL GIVEN. TEMP AFTER INITIAL RUN IN OF IV TYLENOL 101.3 ORALLY. WILL CONTINUE TO MONITOR. PATIENT ALSO GIVEN SEVERAL CUPS OF APPLE JUICE AT THIS TIME.
--- NOTE | 2016-12-12 17:00 | NUR ---
NURSING NOTE: CHEST XRAY TAKEN, BC/LABS DRAWN, URINE SAMPLE SENT. TEMP AT THIS TIME ORAL 100.4, RECTAL 102.7. WILL CONTINUE TO MONITOR.
--- NOTE | 2016-12-12 17:06 | Event Note ---
Event Note Event Note: Situation: At approximately 4 PM nursing staff paged myself to alert housestaff that patient was febrile to 102.2 and had a blood sugar reading of <50. Background: 71-year-old man with multiple cardiovascular problems seen for evaluation of chills, weakness, and rash possibly suggestive of a tickborne illness such as anaplasmosis. he was febrile to 102.7 in the ED with leukopenia, anemia, and thrombocytopenia. Patient was Started on intravenousdoxycycline in the ED. Patient was admitted to the general medicine floorfor intravenous antibiotics and infectious disease consult. Infectious disease area development consultant recommended peripheral smear, that determinant for presence of morulae. Labs for anaplasmosis PCR, and Lyme titer were sent and patient was converted to doxycycline 100 mg by mouth twice a day earlier in the day prior to this event. Assessment: Patient seen and examined. He is seen sitting upright in bed resting comfortably. He appears mildly uncomfortable but in no acute distress. He reports feeling chills and like he "just ran a marathon". He otherwise states that he feels fine and denies any new subjective complaints. Additionally he denies any blurred/double vision, lightheadedness/dizziness, headache, subjective fever, chest pain, palpitations, shortness breath, cough, nausea, vomiting, diarrhea, worsening weakness, numbness/tingling. Vital signs-oral temperature 102.2, HR 110, BP 140/68,O2 89% on room air improving to 94% on 2.0 L via nasal cannula Physical exam General - well developed, well-nourished elderly man in no acute distress HEENT - NCAT, PERRL, EOMI, anicteric sclera Cardio - S1, S2 w/o murmurs/gallops/rubs Resp - CTA bilaterally w/o wheezing/rhochi/crackles GI - soft, nontender, nondistended, bowel sounds present Neuro - Awake and alert, CN II - XII grossly intact Extremities - pulses, no cyanosis/clubbing/edema Skin-warm to touch without any new rash, bruising or blemish Recommendations: Patient was given 1 g of intravenous acetaminophen for his fever and ordered a standing regimen of oral acetaminophen for further fevers >101. He was given 1 amp of intravenous dextrose several cups of apple juice. Calculated ANC was 1082. Vital signs assessed at 5 PM demonstrated a rectal temperature of 102.7 and oral temperature 100.4, HR 80, and blood sugar 163. Patient was saturating 97% on 1.0 L and continued to deny any new complaints. These finding and events were reported to the covering night team with instruction to follow-up pending labs. -Monitor closely for hemodynamic instability -Stat portable chest x-ray -Blood cultures 2 -Urine culture -1 amp dextrose -Stat CBC/lactic acid
[2016-12-12 17:12] LABS: ABSOLUTE BASOPHIL COUNT 0 /CUMM (0.0-0.2); ABSOLUTE EOSINOPHIL COUNT 0 /CUMM (0.0-0.7); ABSOLUTE GRANULOCYTE CT 2.4 /CUMM (1.4-6.5); ABSOLUTE LYMPH COUNT 0.4 /CUMM (1.2-3.4); ABSOLUTE MONOCYTE COUNT 0.5 /CUMM (0.10-0.60); BASOPHIL % 0 % (0.0-2.0); EOSINOPHIL % 0 % (0-5); GRANULOCYTE % 73.7 % (42.2-75.2); HEMATOCRIT 31.8 % (42-52); MEAN CORPUSCULAR HGB 30.5 PG (27.0-31.0); MEAN CORPUSCULAR VOLUME 89.6 FL (80.0-94.0); MEAN PLATELET VOLUME 10.2 FL (7.4-10.4); PLATELET COUNT 76 /CUMM (130-400); RBC DISTRIBUTION WIDTH 13.8 % (11.5-14.5); RED BLOOD CELL CT 3.55 /CUMM (4.70-6.10)
[2016-12-12 17:17] LABS: WHITE BLOOD CELL COUNT 3.2 /CUMM (4.8-10.8)
--- NOTE | 2016-12-12 17:46 | RADIOLOGY REPORT ---
EXAMINATION: XR PORTABLE CHEST CLINICAL INFORMATION: 71-year-old male patient with sepsis and hypoxia. COMPARISON: Portable chest x-ray on 12/27/2014. TECHNIQUE: Portable AP semierect view of the chest was obtained. FINDINGS: The heart is enlarged but stable. The thoracic aorta is uncoiled. Left pectoral pacemaker generator has flipped 180 degrees. Nevertheless, the tip of the single wire electrode remains in the right ventricle. Lungs are clear and there is no evidence of pulmonary edema or consolidation. No pleural effusion is seen. IMPRESSION: No pneumonia.
--- NOTE | 2016-12-12 18:09 | PN- Att Addend ---
Attending Addendum Attending Brief Note Patient feeling better this morning his temperature came down overnight to the sugars are still fluctuating. Other vital signs are stable appreciate Dr. Dejesus of input and recommendations we'll continue empiric treatment with doxycycline check the blood smear Current Medications Sig/Titus Start time Last Medication Dose Route Stop Time Status Admin Acetaminophen 1,000 MG ONCE ONE 12/12 1615 DC 12/12 N/A 1 UNIT IV 12/12 1629 1735 Acetaminophen 650 MG Q4P PRN 12/12 1615 AC PO Amlodipine Besylate 5 MG DAILY 12/12 1000 AC 12/12 PO 1034 Apixaban 5 MG BID 12/11 2200 AC 12/12 PO 1035 Atorvastatin Calcium 5 MG 1700 12/11 1700 AC PO Dextrose 25 GM ONCE ONE 12/12 1615 DC 12/12 IV 12/12 1616 1611 Doxycycline Hyclate 100 MG BID 12/12 2200 CAN Sodium Chloride 100 ML IV Doxycycline Hyclate 100 MG BID 12/12 2200 AC PO Doxycycline Hyclate 100 MG DAILY 12/12 1000 DC 12/12 Sodium Chloride 100 ML IV 1035 Finasteride 5 MG DAILY 12/12 1000 AC 12/12 PO 1034 Insulin Aspart 0 TIDAC 12/12 0800 AC 12/12 SC 1409 Insulin Detemir 9 UNITS BID 12/11 2200 AC 12/12 SC 1035 Losartan Potassium 100 MG DAILY 12/12 1000 AC 12/12 PO 1034 Patient Medication 1 ED .STK-MED ONE 12/12 1355 OR Teaching ED 12/12 1356 Laboratory Tests 12/12/16 1651: Lactic Acid 4.7 H, CBC w Diff NO MAN DIFF REQ, RBC 3.55 L, MCV 89.6, MCH 30.5, RDW 13.8, MPV 10.2, Gran % 73.7, Lymphocytes % 11.9 L, Monocytes % 14.4 H, Eosinophils % 0, Basophils % 0 L, Absolute Granulocytes 2.4, Absolute Lymphocytes 0.4 L, Absolute Monocytes 0.5, Absolute Eosinophils 0, Absolute Basophils 0, PUBS MCHC 34.0 12/12/16 0640: Anion Gap 5, Estimated GFR 54 L, BUN/Creatinine Ratio 18.5, CBC w Diff NO MAN DIFF REQ, RBC 3.26 L, MCV 89.3, MCH 30.6, RDW 14.1, MPV 10.5 H, Gran % 60.1, Lymphocytes % 19.9 L, Monocytes % 18.9 H, Eosinophils % 0.1, Basophils % 1.0, Absolute Granulocytes 1.1 L, Absolute Lymphocytes 0.4 L, Absolute Monocytes 0.3, Absolute Eosinophils 0, Absolute Basophils 0, PUBS MCHC 34.3 Microbiology Date/Time Procedure - Status Source Growth 12/12 170 Urine Culture - RECD URINE ROUT 12/12 1624 Blood Culture - RECD BLOOD 12/13 1619 Blood Culture - RECD BLOOD Vital Signs Date Time Temp Pulse Resp B/P B/P Pulse O2 O2 Flow FiO2 Mean Ox Delivery Rate 12/12 1735 102.2 12/12 1700 102.7 80 18 140/68 98 Nasal 1.0L Cannula 12/12 1615 101.3 88 20 140/68 94 Nasal 2.0L Cannula 12/12 1600 102.2 110 22 192/68 89 Room Air 12/12 1439 100.2 80 18 144/80 92 Room Air 12/12 1311 99.5 75 20 178/66 94 Room Air
--- NOTE | 2016-12-12 18:30 | NUR ---
NURSING NOTE: VITALS AT THIS TIME BP 130/60, HR 81, RECTAL TEMP 100.0, R 18, O2 SAT 94% 1L. BS 66. TENTS ASSEMBLER 073 NOTIFIED. LACTIC ACID LEVEL CAME BACK HIGH @ 4.7. ORDER TO RE-DRAW LAB AT 1910. NEW ORDER TO HAND NS @ 125ML/HR AT THIS TIME. TREE MARKER UP TO DATE ON ALL INFORMATION. WILL CONTINUE TO MONITOR.
--- NOTE | 2016-12-13 02:19 | NUR ---
PT WITH SHAKING CHILLS, TEMP 98.9, TYLENOL GIVEN, BLANKETS GIVEN, FINGER STICK 207. LACTIC ACID HAS DECREASED. STABLE AT THIS TIME, NO TEMP SPIKE OF YET
[2016-12-13 04:08] VITALS: BP 158/74
--- NOTE | 2016-12-13 04:28 | NUR ---
PT WITH TEMP 102.1 ORALLY, 100.8 RECTALLY, RECEIVED TYELNOL EARLIER FOR SHAKING CHILLS. ALLERGY TO ASPIRIN. ICE PACKS APPLIED, DR BANUELOS NOTIFIED
--- NOTE | 2016-12-13 07:07 | PN- Housestaff ---
Subjective Follow-up For: Chills, weakness, rash Leukopenia Thrombocytopenia Fever Subjective: Patient seen and examined. He is seen lying flat in bed and single flat sheet covering him. He appears mildly uncomfortable, but in no acute distress. He states that he feels cold and reports intermittent episodes of teeth chattering overnight. He feels tired and admits to a mild headache which is reportedly unusual for him but otherwise does not endorse any new subjective complaints. Additionally he denies any subjective fever, lightheadedness/dizziness, chest pain, palpitations, shortness of breath, cough, nausea, vomiting, diarrhea. Yesterday afternoon patient was found to be febrile to 102.2 with a blood sugar of <50 for which multiple lab and imaging studies were performed. Lactic acid was found to be elevated to 4.8 which was treated with intravenous fluids and trended until normal. Patient was given several doses of intravenous acetaminophen and defervesced overnight. Review of Systems Constitutional: Reports: see HPI. Objective Last 24 Hrs of Vital Signs/I&O Vital Signs Date Time Temp Pulse Resp B/P B/P Pulse O2 O2 Flow FiO2 Mean Ox Delivery Rate 12/13 0955 68 146/64 12/13 0952 68 146/64 12/13 0615 99.9 12/13 0524 101.0 12/13 0428 102.1 12/13 0408 102.0 63 18 158/74 93 Room Air 12/12 2226 98.8 61 18 112/56 92 12/12 2100 98.1 65 18 136/66 97 12/12 1845 100.0 12/12 1826 100.0 81 18 130/60 94 Nasal 1.0L Cannula 12/12 1735 102.2 12/12 1700 102.7 80 18 140/68 98 Nasal 1.0L Cannula 12/12 1615 101.3 88 20 140/68 94 Nasal 2.0L Cannula 12/12 1600 88 Nasal 2.0L Cannula 12/12 1600 102.2 110 22 192/68 89 Room Air 12/12 1439 100.2 80 18 144/80 92 Room Air 12/12 1311 99.5 75 20 178/66 94 Room Air Intake & Output 12/13 1600 12/13 0800 12/13 0000 Intake Total 1600 800 Output Total 800 300 Balance 800 500 Intake, IV 1000 500 Intake, Oral 600 300 Output, Urine 800 300 Physical Exam General Appearance: Alert, Oriented X3, Cooperative, No Acute Distress Other Physical Findings: General -well-developed, well-nourished elderly man in no acute distress HEENT - NCAT, PERRL, EOMI, anicteric sclera Cardio - S1, S2 w/o murmurs/gallops/rubs Resp - CTA bilaterally w/o wheezing/rhochi/crackles GI - soft, nontender, nondistended, bowel sounds present, 0.5 cm raised red lesion without drainage or induration on upper left flank and suprapubic area Neuro - Awake and alert, CN II - XII grossly intact Extremities -normal pulses, no cyanosis/clubbing/edema Current Medications: Current Medications Sig/Titus Start time Last Medication Dose Route Stop Time Status Admin Acetaminophen 500 MG Q6P PRN 12/13 0900 AC PO Acetaminophen 1,000 MG ONCE ONE 12/13 0530 DC N/A 1 UNIT IV 12/13 0544 Acetaminophen 650 MG .STK-MED ONE 12/13 0156 DC PO 12/13 0157 Acetaminophen 1,000 MG ONCE ONE 12/12 1615 DC 12/12 N/A 1 UNIT IV 12/12 1629 1735 Acetaminophen 650 MG Q4P PRN 12/12 1615 DC 12/13 PO 0428 Amlodipine Besylate 5 MG DAILY 12/12 1000 AC 12/13 PO 0955 Apixaban 5 MG BID 12/11 2200 AC 12/13 PO 0953 Atorvastatin Calcium 5 MG 1700 12/11 1700 AC 12/12 PO 1853 Dextrose 25 GM ONCE ONE 12/12 1615 DC 12/12 IV 12/12 1616 1611 Doxycycline Hyclate 100 MG BID 12/12 2200 CAN Sodium Chloride 100 ML IV Doxycycline Hyclate 100 MG BID 12/12 2200 AC 12/13 PO 0955 Doxycycline Hyclate 100 MG DAILY 12/12 1000 DC 12/12 Sodium Chloride 100 ML IV 1035 Finasteride 5 MG DAILY 12/12 1000 AC 12/13 PO 0955 Insulin Aspart 0 TIDAC 12/12 0800 AC 12/13 SC 0948 Insulin Detemir 9 UNITS BID 12/11 2200 AC 12/13 SC 0953 Losartan Potassium 100 MG DAILY 12/12 1000 AC 12/13 PO 0952 Patient Medication 1 ED .STK-MED ONE 12/12 1355 DC Teaching ED 12/12 1356 Sodium Chloride 1,000 ML Q10H 12/12 1845 AC 12/13 IV 0321 Last 24 Hrs of Lab/Kan Results Last 24 Hrs of Labs/Mics: Laboratory Tests 12/13/16 0838: Anion Gap 8, Estimated GFR > 60, BUN/Creatinine Ratio 18.0, CBC w Diff Pending, WBC Pending, RBC Pending, Hgb Pending, Hct Pending, MCV Pending, MCH Pending, RDW Pending, Plt Count Pending, MPV Pending, Gran % Pending, Lymphocytes % Pending, Monocytes % Pending, Eosinophils % Pending, Basophils % Pending, Absolute Granulocytes Pending, Absolute Lymphocytes Pending, Absolute Monocytes Pending, Absolute Eosinophils Pending, Absolute Basophils Pending, PUBS MCHC Pending 12/12/16 2218: Lactic Acid 1.0 12/12/16 191: Lactic Acid 2.8 H 12/12/16 1651: Lactic Acid 4.7 H, CBC w Diff NO MAN DIFF REQ, RBC 3.55 L, MCV 89.6, MCH 30.5, RDW 13.8, MPV 10.2, Gran % 73.7, Lymphocytes % 11.9 L, Monocytes % 14.4 H, Eosinophils % 0, Basophils % 0 L, Absolute Granulocytes 2.4, Absolute Lymphocytes 0.4 L, Absolute Monocytes 0.5, Absolute Eosinophils 0, Absolute Basophils 0, PUBS MCHC 34.0 Microbiology 12/12 1708 URINE ROUT: Urine Culture - RES 12/12 1625 BLOOD: Blood Culture - RECD 12/12 162 BLOOD: Blood Culture - RECD Assessment/Plan Assessment: 71 year old man with multiple medical problems significant for an extensive cardiovascular history and occupational exposure to outdoors seen for evaluation of vague systemic complaints consisting of chills, weakness, urinary frequency without pain. Patient was found to be febrile to 102.7 max and hypertensive but other had vitals within normal limits. Patient has a history of BPH but had a normal urinalysis. Given his exposure the outdoors it is possible that patient has contracted a tickborne illness, but alternative diagnoses such as prostatis or an unidentified infection should be considered. Patient is to be admitted to the general medicine floor for further evaluation. Hospital day 2 Patient was consistently febrile intermittently overnight for which she was treated with intravenous fluid resuscitation, lactic acid was initially found to be elevated yesterday and was trended until normal. He is maintained on oral doxycycline for suspicion of a tickborne illness. Lyme titer was 0.22. Anaplasma PCR still pending. Weakness/Chills/Urinary Frequency/Fever, Possible Tick Borne Illness/ Thrombocytopenia Patient with chills and weakness found to be febrile to 102.7 in the ED. Patient was empirically started on intravenous Doxycycline by ED staff for suspicion of a tick borne illness given patients vague symptoms and thromboycytopenia and his history of exposure to outdoors. Patient denies any known tick bites. Peripheral smear was inconclusive for any presence of more UA. Lyme titer 0.22. -General Medicine -Doxycyline 100mg PO BID -ID Consult -Daily CBC -F/U Anaplasma PCR -F/U Cultures & Sensitivites Hypertension -Amlodipine 5mg PO Daily -Losartan 100mg PO Daily Non-insulin Dependent Diabetes Mellitus -Accuchecks TIDAC/HS -Hold oral hypoglycemics -Novolog SSI -Levemir 9 units SC BID Atrial Fibrillation on Eliquis, SSS s/p PM, CAD-Eliquis 5mg PO BID Hyperlipidemia-Atorvastatin 5mg PO Daily BPH/History of Nephrolithiasis-Finasteride 5mg PO Daily Pain Plan-Acetaminophen Diet- Diabetic Diet DVT Ppx-ALPS Code Status- FULL CODE Problem List: 1. Thrombocytopenia 2. Anemia 3. Leukopenia Pain Ratin Pain Location: None Pain Goal: Remain pain free Pain Plan: See assessment Tomorrow's Labs & Rationales: CBC - pancytopenia Consulting Request: Consulting Specialty: Infectious Disease
[2016-12-13 10:10] LABS: ABSOLUTE BASOPHIL COUNT 0 /CUMM (0.0-0.2); ABSOLUTE EOSINOPHIL COUNT 0 /CUMM (0.0-0.7); ABSOLUTE GRANULOCYTE CT 2.8 /CUMM (1.4-6.5); ABSOLUTE LYMPH COUNT 0.4 /CUMM (1.2-3.4); ABSOLUTE MONOCYTE COUNT 0.6 /CUMM (0.10-0.60); BASOPHIL % 0.3 % (0.0-2.0); EOSINOPHIL % 0.4 % (0-5); GRANULOCYTE % 72.1 % (42.2-75.2); HEMATOCRIT 30.2 % (42-52); MEAN CORPUSCULAR HGB 30.4 PG (27.0-31.0); MEAN CORPUSCULAR HGB CONC 33.8 G/DL (33.0-37.0); MEAN CORPUSCULAR VOLUME 89.8 FL (80.0-94.0); MEAN PLATELET VOLUME 11.4 FL (7.4-10.4); PLATELET COUNT 66 /CUMM (130-400); RBC DISTRIBUTION WIDTH 14.1 % (11.5-14.5); RED BLOOD CELL CT 3.36 /CUMM (4.70-6.10); WHITE BLOOD CELL COUNT 3.9 /CUMM (4.8-10.8)
--- NOTE | 2016-12-13 10:14 | PN- Att Addend ---
Attending Addendum Attending Brief Note Patient has no major complaints except poor appetite. His temp max was 102.1 overnight making rounds with Dr. Canales, patient's skin showed 2 papular abnormalities unchanged a few crackles on lung auscultation on the basis. and trace edema, CBC for today spending more blood cultures are negative so far. Yesterday's white count had come up a little bit to 3 thousands, special cultures are not back . We'll check a chest x-ray. Monitor the labs and temperature are continue observation today make sure he is a febrile for at least 24 hours continue doxycycline for now. Current Medications Sig/Titus Start time Last Medication Dose Route Stop Time Status Admin Acetaminophen 500 MG Q6P PRN 12/13 0900 AC PO Acetaminophen 1,000 MG ONCE ONE 12/13 0530 DC N/A 1 UNIT IV 12/13 0544 Acetaminophen 650 MG .STK-MED ONE 12/13 0156 DC PO 12/13 0157 Acetaminophen 1,000 MG ONCE ONE 12/12 1615 DC 12/12 N/A 1 UNIT IV 12/12 1629 1735 Acetaminophen 650 MG Q4P PRN 12/12 1615 DC 12/13 PO 0428 Amlodipine Besylate 5 MG DAILY 12/12 1000 AC 12/13 PO 0955 Apixaban 5 MG BID 12/11 2200 AC 12/13 PO 0953 Atorvastatin Calcium 5 MG 1700 12/11 1700 AC 12/12 PO 1853 Dextrose 25 GM ONCE ONE 12/12 1615 DC 12/12 IV 12/12 1616 1611 Doxycycline Hyclate 100 MG BID 12/12 2200 CAN Sodium Chloride 100 ML IV Doxycycline Hyclate 100 MG BID 12/12 2200 AC 12/13 PO 0955 Doxycycline Hyclate 100 MG DAILY 12/12 1000 DC 12/12 Sodium Chloride 100 ML IV 1035 Finasteride 5 MG DAILY 12/12 1000 AC 12/13 PO 0955 Insulin Aspart 0 TIDAC 12/12 0800 AC 12/13 SC 0948 Insulin Detemir 9 UNITS BID 12/11 2200 AC 12/13 SC 0953 Losartan Potassium 100 MG DAILY 12/12 1000 AC 12/13 PO 0952 Patient Medication 1 ED .STK-MED ONE 12/12 1355 DC Teaching ED 12/12 1356 Sodium Chloride 1,000 ML Q10H 12/12 1845 AC 12/13 IV 0321 Laboratory Tests 12/13/16 0838: Sodium Pending, Potassium Pending, Chloride Pending, Carbon Dioxide Pending, Anion Gap Pending, BUN Pending, Creatinine Pending, BUN/Creatinine Ratio Pending , CBC w Diff Pending, WBC Pending, RBC Pending, Hgb Pending, Hct Pending, MCV Pending, MCH Pending, RDW Pending, Plt Count Pending, MPV Pending, PUBS MCHC Pending 12/12/16 2218: Lactic Acid 1.0 12/12/16 191: Lactic Acid 2.8 H 12/12/16 1651: Lactic Acid 4.7 H, CBC w Diff NO MAN DIFF REQ, RBC 3.55 L, MCV 89.6, MCH 30.5, RDW 13.8, MPV 10.2, Gran % 73.7, Lymphocytes % 11.9 L, Monocytes % 14.4 H, Eosinophils % 0, Basophils % 0 L, Absolute Granulocytes 2.4, Absolute Lymphocytes 0.4 L, Absolute Monocytes 0.5, Absolute Eosinophils 0, Absolute Basophils 0, PUBS MCHC 34.0 Microbiology Date/Time Procedure - Status Source Growth 12/12 1708 Urine Culture - RES URINE ROUT 12/12 162 Blood Culture - RECD BLOOD 12/12 162 Blood Culture - RECD BLOOD Vital Signs Date Time Temp Pulse Resp B/P B/P Pulse O2 O2 Flow FiO2 Mean Ox Delivery Rate 12/13 0955 68 146/64 12/13 0952 68 146/64 12/13 0615 99.9 12/13 0524 101.0 12/13 0428 102.1 12/13 0408 102.0 63 18 158/74 93 Room Air
--- NOTE | 2016-12-13 10:54 | PN- Infect Dx ---
Subjective Subjective: MAXIMUM TEMPERATURE 102.1. Events from last evening noted with recurrent fever and shaking chills with hypoglycemia. He feels improved this morning but did note a mild headache earlier today. Objective Last 24 Hrs of Vital Signs/I&O Vital Signs Date Time Temp Pulse Resp B/P B/P Pulse O2 O2 Flow FiO2 Mean Ox Delivery Rate 12/13 0955 68 146/64 12/13 0952 68 146/64 12/13 0615 99.9 12/13 0524 101.0 12/13 0428 102.1 12/13 0408 102.0 63 18 158/74 93 Room Air 12/12 2226 98.8 61 18 112/56 92 12/12 2100 98.1 65 18 136/66 97 12/12 1845 100.0 12/12 1826 100.0 81 18 130/60 94 Nasal 1.0L Cannula 12/12 1735 102.2 12/12 1700 102.7 80 18 140/68 98 Nasal 1.0L Cannula 12/12 1615 101.3 88 20 140/68 94 Nasal 2.0L Cannula 12/12 1600 88 Nasal 2.0L Cannula 12/12 1600 102.2 110 22 192/68 89 Room Air 12/12 1439 100.2 80 18 144/80 92 Room Air 12/12 1311 99.5 75 20 178/66 94 Room Air Intake & Output 12/13 1600 12/13 0800 12/13 0000 Intake Total 1600 800 Output Total 800 300 Balance 800 500 Intake, IV 1000 500 Intake, Oral 600 300 Output, Urine 800 300 Physical Exam Other Physical Findings: He appears comfortable in no acute distress Skin papular lesions over the left flank and suprapubic areas unchanged Lungs bibasilar crackles Heart regular rhythm with no murmur Extremities trace edema both lower extremities Results Last 24 Hours of Lab Results: Laboratory Tests 12/13 12/12 12/12 0838 [id number] 1919 Chemistry Sodium (137 - 145 mmol/L) 133 L Potassium (3.5 - 5.1 mmol/L) 3.9 Chloride (98 - 107 mmol/L) 103 Carbon Dioxide (22 - 30 mmol/L) 22 Anion Gap (5 - 16) 8 BUN (9 - 20 mg/dL) 18 Creatinine (0.7 - 1.2 mg/dL) 1.0 Estimated GFR (>60 ml/min) > 60 BUN/Creatinine Ratio (7 - 25 %) 18.0 Lactic Acid (0.7 - 2.1 mmol/L) 1.0 2.8 H Hematology CBC w Diff MAN DIFF ORDERED WBC (4.8 - 10.8 /CUMM) Pending RBC (4.70 - 6.10 /CUMM) Pending Hgb (14.0 - 18.0 G/DL) Pending Hct (42 - 52 %) Pending MCV (80.0 - 94.0 FL) Pending MCH (27.0 - 31.0 PG) Pending RDW (11.5 - 14.5 %) Pending Plt Count (130 - 400 /CUMM) Pending MPV (7.4 - 10.4 FL) Pending Gran % (42.2 - 75.2 %) Pending Lymphocytes % (20.5 - 51.1 %) Pending Monocytes % (1.7 - 9.3 %) Pending Eosinophils % (0 - 5 %) Pending Basophils % (0.0 - 2.0 %) Pending Absolute Granulocytes (1.4 - 6.5 /CUMM) Pending Segmented Neutrophils (42.2 - 75.2 %) Pending Absolute Lymphocytes (1.2 - 3.4 /CUMM) Pending Absolute Monocytes (0.10 - 0.60 /CUMM) Pending Absolute Eosinophils (0.0 - 0.7 /CUMM) Pending Absolute Basophils (0.0 - 0.2 /CUMM) Pending PUBS MCHC (33.0 - 37.0 G/DL) Pending 12/12 1651 Chemistry Lactic Acid (0.7 - 2.1 mmol/L) 4.7 H Hematology CBC w Diff NO MAN DIFF REQ WBC (4.8 - 10.8 /CUMM) 3.2 L RBC (4.70 - 6.10 /CUMM) 3.55 L Hgb (14.0 - 18.0 G/DL) 10.8 L Hct (42 - 52 %) 31.8 L MCV (80.0 - 94.0 FL) 89.6 MCH (27.0 - 31.0 PG) 30.5 RDW (11.5 - 14.5 %) 13.8 Plt Count (130 - 400 /CUMM) 76 L MPV (7.4 - 10.4 FL) 10.2 Gran % (42.2 - 75.2 %) 73.7 Lymphocytes % (20.5 - 51.1 %) 11.9 L Monocytes % (1.7 - 9.3 %) 14.4 H Eosinophils % (0 - 5 %) 0 Basophils % (0.0 - 2.0 %) 0 L Absolute Granulocytes (1.4 - 6.5 /CUMM) 2.4 Absolute Lymphocytes (1.2 - 3.4 /CUMM) 0.4 L Absolute Monocytes (0.10 - 0.60 /CUMM) 0.5 Absolute Eosinophils (0.0 - 0.7 /CUMM) 0 Absolute Basophils (0.0 - 0.2 /CUMM) 0 PUBS MCHC (33.0 - 37.0 G/DL) 34.0 Last 24 Hours of Kan Results: Blood cultures December 11 negative Blood cultures December 12 negative Urine culture December 12 negative Recent Imaging Studies: Chest x-ray December 12 negative Assessment/Plan Impression: Recurrent fever on Doxycycline now Day 2 of treatment for 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 Have requested the lab to review his peripheral smear, which did suggest the possibility of morulae within 1 white blood cell, but this was not definitive. Other organisms transmitted by the same tick that carries Anaplasma, including Lyme, Borrelia miyamotoi, [place] virus and Babesia could also be considered as well as other infections, such as West Nile virus. His blood cultures remain negative, making a more common bacterial infection less likely. Suggestion: 1. Follow-up PCR for Anaplasma and Lyme titer 2. Continue Doxycycline
[2016-12-13 14:42] VITALS: BP 128/60
--- NOTE | 2016-12-13 18:18 | RADIOLOGY REPORT ---
EXAMINATION: XR CHEST CLINICAL INFORMATION: Active infection. Crackles. COMPARISON: 12/12/2016. TECHNIQUE: 2 views of the chest were obtained. FINDINGS: Left chest wall pacer unchanged. The lungs are well expanded. No consolidation, edema, or effusion. No pneumothorax. The cardiomediastinal silhouette is within normal limits, with a calcified aorta. Degenerative changes of the spine. IMPRESSION: No change from prior. No acute pulmonary findings.
--- NOTE | 2016-12-13 22:16 | NUR ---
PT REFUSED BED ALARM. GAIT STEADY AT THIS TIME. ADVISED PT TO CALL FOR ASSISTANCE OOB TO HELP WITH IV POLE.
[2016-12-13 22:32] VITALS: BP 130/70
[2016-12-14 06:11] VITALS: BP 130/68
--- NOTE | 2016-12-14 07:21 | PN- Housestaff ---
Subjective Follow-up For: Chills, weakness, rash Leukopenia Thrombocytopenia Fever Subjective: Patient seen and examined. He is seen sitting upright in bed resting comfortably. He appears to be in no acute distress. At his bedside is his whom is up to date about his medical condition and has no further questions at this time. Patient reports feeling much better today and denies any further fever, chills, or weakness. He some have urinary frequency without burning or discomfort that he attributes to the intravenous fluids hes getting. Hes eating and drinking well and ambulating independently. Otherwise he denies any headache, chest pain, palpitations, shortness of breath, nausea, vomiting, diarrhea. No overnight events reported. Review of Systems Constitutional: Reports: see HPI. Objective Last 24 Hrs of Vital Signs/I&O Vital Signs Date Time Temp Pulse Resp B/P B/P Pulse O2 O2 Flow FiO2 Mean Ox Delivery Rate 12/14 0931 63 130/68 12/14 0931 63 130/68 12/14 0611 98.4 63 20 130/68 95 Room Air 12/13 2232 97.4 61 20 130/70 93 Room Air 12/13 1736 97.8 12/13 1442 97.5 60 18 128/60 96 Room Air 12/13 1301 97.9 12/13 1204 100.3 12/13 1202 100.3 Intake & Output 12/14 1600 12/14 0800 12/14 0000 Intake Total 1150 475 Output Total 500 250 Balance -500 1150 225 Intake, IV 1000 375 Intake, Oral 150 100 Output, Urine 500 250 Physical Exam General Appearance: Alert, Oriented X3, Cooperative, No Acute Distress Other Physical Findings: General -well-developed, well-nourished elderly man in no acute distress HEENT - NCAT, PERRL, EOMI, anicteric sclera Cardio - S1, S2 w/o murmurs/gallops/rubs Resp - scant right lower lung field crackles GI - soft, nontender, nondistended, bowel sounds present, 0.5 cm raised red lesion without drainage or induration on upper left flank and suprapubic area Neuro - Awake and alert, CN II - XII grossly intact Extremities -normal pulses, no cyanosis/clubbing/edema Current Medications: Current Medications Sig/Titus Start time Last Medication Dose Route Stop Time Status Admin Acetaminophen 650 MG .STK-MED ONE 12/13 1157 DC PO 12/13 1158 Acetaminophen 500 MG Q6P PRN 12/13 0900 AC 12/13 PO 1202 Amlodipine Besylate 5 MG DAILY 12/12 1000 AC 12/14 PO 0931 Apixaban 5 MG BID 12/11 2200 AC 12/14 PO 0931 Atorvastatin Calcium 5 MG 1700 12/11 1700 AC 12/13 PO 1854 Doxycycline Hyclate 100 MG BID 12/12 2200 AC 12/13 PO 2148 Finasteride 5 MG DAILY 12/12 1000 AC 12/14 PO 0931 Insulin Aspart 0 TIDAC 12/12 0800 AC 12/14 SC 0810 Insulin Detemir 9 UNITS BID 12/11 2200 AC 12/14 SC 0931 Losartan Potassium 100 MG DAILY 12/12 1000 AC 12/14 PO 0931 Sodium Chloride 1,000 ML Q10H 12/12 1845 AC 12/14 IV 0407 Last 24 Hrs of Lab/Kan Results Last 24 Hrs of Labs/Mics: Laboratory Tests 12/14/16 0630: CBC w Diff NO MAN DIFF REQ, RBC 3.14 L, MCV 89.2, MCH 30.3, RDW 13.8, MPV 11.1 H, Gran % 64.6, Lymphocytes % 19.8 L, Monocytes % 14.8 H, Eosinophils % 0.4, Basophils % 0.4, Absolute Granulocytes 2.3, Absolute Lymphocytes 0.7 L, Absolute Monocytes 0.5, Absolute Eosinophils 0, Absolute Basophils 0, PUBS MCHC 33.9 Assessment/Plan Assessment: 71 year old man with multiple medical problems significant for an extensive cardiovascular history and occupational exposure to outdoors seen for evaluation of vague systemic complaints consisting of chills, weakness, urinary frequency without pain. Patient was found to be febrile to 102.7 max and hypertensive but other had vitals within normal limits. Patient has a history of BPH but had a normal urinalysis. Given his exposure the outdoors it is possible that patient has contracted a tickborne illness, but alternative diagnoses such as prostatis or an unidentified infection should be considered. Patient is to be admitted to the general medicine floor for further evaluation. Hospital day 3 Patient remains afebrile overnight while on intravenous doxycycline and fluids. He reports feeling much better today and is eagar to go home. Anaplasma PCR still pending. Patient is to be discharged to home with instruction to follow up with Dr. Walker as an outpatinet at his previously scheduled appointment next week and to take Doxycycline as directed for a 10 day total antibiotic course. Weakness/Chills/Urinary Frequency/Fever, Possible Tick Borne Illness/ Thrombocytopenia Patient with chills and weakness found to be febrile to 102.7 in the ED. Patient was empirically started on intravenous Doxycycline by ED staff for suspicion of a tick borne illness given patients vague symptoms and thromboycytopenia and his history of exposure to outdoors. Patient denies any known tick bites. Peripheral smear was inconclusive for any presence of more UA. Lyme titer 0.22. -General Medicine -Doxycyline 100mg PO BID -ID Consult -Daily CBC -F/U Anaplasma PCR -F/U Cultures & Sensitivites Hypertension -Amlodipine 5mg PO Daily -Losartan 100mg PO Daily Non-insulin Dependent Diabetes Mellitus -Accuchecks TIDAC/HS -Hold oral hypoglycemics -Novolog SSI -Levemir 9 units SC BID Atrial Fibrillation on Eliquis, SSS s/p PM, CAD-Eliquis 5mg PO BID Hyperlipidemia-Atorvastatin 5mg PO Daily BPH/History of Nephrolithiasis-Finasteride 5mg PO Daily Pain Plan-Acetaminophen Diet- Diabetic Diet DVT Ppx-ALPS Code Status- FULL CODE Problem List: 1. Anaplasmosis Pain Ratin Pain Location: None Pain Goal: Remain pain free Pain Plan: See assessment Tomorrow's Labs & Rationales: None Consulting Request: Consulting Specialty: Infectious Disease
[2016-12-14 07:39] LABS: ABSOLUTE BASOPHIL COUNT 0 /CUMM (0.0-0.2); ABSOLUTE EOSINOPHIL COUNT 0 /CUMM (0.0-0.7); ABSOLUTE GRANULOCYTE CT 2.3 /CUMM (1.4-6.5); ABSOLUTE LYMPH COUNT 0.7 /CUMM (1.2-3.4); ABSOLUTE MONOCYTE COUNT 0.5 /CUMM (0.10-0.60); BASOPHIL % 0.4 % (0.0-2.0); EOSINOPHIL % 0.4 % (0-5); GRANULOCYTE % 64.6 % (42.2-75.2); MEAN CORPUSCULAR HGB 30.3 PG (27.0-31.0); MEAN CORPUSCULAR HGB CONC 33.9 G/DL (33.0-37.0); MEAN CORPUSCULAR VOLUME 89.2 FL (80.0-94.0); MEAN PLATELET VOLUME 11.1 FL (7.4-10.4); PLATELET COUNT 67 /CUMM (130-400); RBC DISTRIBUTION WIDTH 13.8 % (11.5-14.5); RED BLOOD CELL CT 3.14 /CUMM (4.70-6.10); WHITE BLOOD CELL COUNT 3.6 /CUMM (4.8-10.8)
[2016-12-14 09:31] VITALS: BP 130/68
[2016-12-14] MEDS ORDERED: DOXYCYCLINE HY100 M2 PO (10:59)
--- NOTE | 2016-12-14 11:04 | Patient Discharge Instructions ---
Discharge Instructions General Discharge Information Special Instructions: Follow up with Dr Walker in his office next week at your previously scheduled appointment. Take Doxycycline as direct. Do not miss a dose. Avoid direct sun exposure while on this medication. Continue all your previous home medications. Call 911 or return to the ED should your develop more elevated temperatures or worsening symptoms. Acute Coronary Syndrome Inclusion Criteria At DC or during hospital stay patient has or had the following: ACS DIAGNOSIS No Discharge Core Measures Meds if any: Prescribed or Continued at Discharge Meds if any: NOT Prescribed or Continued at Discharge Congestive Heart Failure Inclusion Criteria At DC or during hospital stay patient has or had the following: CHF DIAGNOSIS No Discharge Core Measures Meds if any: Prescribed or Continued at Discharge Meds if any: NOT Prescribed or Continued at Discharge Cerebrovascular accident Inclusion Criteria At DC or during hospital stay patient has or had the following: CVA/TIA Diagnosis No Discharge Core Measures Meds if any: Prescribed or Continued at Discharge Meds if any: NOT Prescribed or Continued at Discharge Venous thromboembolism Inclusion Criteria VTE Diagnosis No VTE Type NONE VTE Confirmed by (Test) NONE Discharge Core Measures - Per Current guidelines, there needs to be overlap - treatment for the first 5 days of Warfarin therapy. - If discharged on Warfarin prior to 5 days of - overlap therapy, the patient will need to be - assessed for post discharge needs including - *Post discharge parental anticoagulation - *Warfarin and/or parental anticoagulation education - *Follow up date to check INR post discharge At least 5 days overlap therapy as Inpatient No Meds if any: Prescribed or Continued at Discharge Note: Overlap Therapy is Warfarin and Anticoagulant Meds if any: NOT Prescribed or Continued at Discharge
--- NOTE | 2016-12-14 11:33 | PN- Infect Dx ---
Subjective Subjective: Afebrile. He feels well with no complaints Objective Last 24 Hrs of Vital Signs/I&O Vital Signs Date Time Temp Pulse Resp B/P B/P Pulse O2 O2 Flow FiO2 Mean Ox Delivery Rate 12/14 0931 63 130/68 12/14 0931 63 130/68 12/14 0611 98.4 63 20 130/68 95 Room Air 12/13 2232 97.4 61 20 130/70 93 Room Air 12/13 1736 97.8 12/13 1442 97.5 60 18 128/60 96 Room Air 12/13 1301 97.9 12/13 1204 100.3 12/13 1202 100.3 Intake & Output 12/14 1600 12/14 0800 12/14 0000 Intake Total 1150 475 Output Total 500 250 Balance -500 1150 225 Intake, IV 1000 375 Intake, Oral 150 100 Output, Urine 500 250 Physical Exam Other Physical Findings: He appears comfortable in no acute distress Skin papular lesions over the left flank and suprapubic areas improved Lungs crackles at the right base Heart regular rhythm with no murmur Extremities no cyanosis, clubbing or edema Results Last 24 Hours of Lab Results: Laboratory Tests 12/14 06 Hematology CBC w Diff NO MAN DIFF REQ WBC (4.8 - 10.8 /CUMM) 3.6 L RBC (4.70 - 6.10 /CUMM) 3.14 L Hgb (14.0 - 18.0 G/DL) 9.5 L Hct (42 - 52 %) 28.0 L MCV (80.0 - 94.0 FL) 89.2 MCH (27.0 - 31.0 PG) 30.3 RDW (11.5 - 14.5 %) 13.8 Plt Count (130 - 400 /CUMM) 67 L MPV (7.4 - 10.4 FL) 11.1 H Gran % (42.2 - 75.2 %) 64.6 Lymphocytes % (20.5 - 51.1 %) 19.8 L Monocytes % (1.7 - 9.3 %) 14.8 H Eosinophils % (0 - 5 %) 0.4 Basophils % (0.0 - 2.0 %) 0.4 Absolute Granulocytes (1.4 - 6.5 /CUMM) 2.3 Absolute Lymphocytes (1.2 - 3.4 /CUMM) 0.7 L Absolute Monocytes (0.10 - 0.60 /CUMM) 0.5 Absolute Eosinophils (0.0 - 0.7 /CUMM) 0 Absolute Basophils (0.0 - 0.2 /CUMM) 0 PUBS MCHC (33.0 - 37.0 G/DL) 33.9 Last 24 Hours of Kan Results: Blood cultures 2 December 11 and December 12 negative Urine culture December 12 negative Assessment/Plan Impression: Appears improved on Doxycycline now Day 3 of treatment for possible Anaplasmosis , with no further fevers, though he remains leukopenic and thrombocytopenic, 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 His Lyme titer is negative, though this does not rule out early Lyme disease and he will need to complete a course of treatment for both Anaplasma and Lyme. Suggestion: 1. Follow-up PCR for Anaplasma 2. Follow-up CBC next week if plan to discharge today 3. Continue Doxycycline to plan on a 10 day course of treatment
--- NOTE | 2016-12-14 19:23 | PN- Att Addend ---
Attending Addendum Attending Brief Note Patient feeling much better him a stronger has been afebrile the last 24 hours when rounding with infectious diseases, was decided patient could be discharged today finished the doxycycline for a total of 10 days monitor his blood sugars and temperature. Follow up as an outpatient by then hopefully we'll have the results of the special studies to see the patient had a tickborne Desease. Intake & Output 12/14 1600 12/14 0800 12/14 0000 12/13 1600 12/13 0800 12/13 0000 Intake Total 1150 742 602 0512 800 Output Total 500 250 300 800 300 Balance -500 1150 225 300 800 500 Intake, IV 4848 090 9482 500 Intake, Oral 150 100 600 600 300 Output, Urine 500 250 300 800 300 Laboratory Tests 12/14/16 0630: CBC w Diff NO MAN DIFF REQ, RBC 3.14 L, MCV 89.2, MCH 30.3, RDW 13.8, MPV 11.1 H, Gran % 64.6, Lymphocytes % 19.8 L, Monocytes % 14.8 H, Eosinophils % 0.4, Basophils % 0.4, Absolute Granulocytes 2.3, Absolute Lymphocytes 0.7 L, Absolute Monocytes 0.5, Absolute Eosinophils 0, Absolute Basophils 0, PUBS MCHC 33.9 12/13/16 0838: Anion Gap 8, Estimated GFR > 60, BUN/Creatinine Ratio 18.0, CBC w Diff MAN DIFF ORDERED, RBC 3.36 L, MCV 89.8, MCH 30.4, RDW 14.1, MPV 11.4 H, Gran % 72.1, Lymphocytes % 11.5 L, Monocytes % 15.7 H, Eosinophils % 0.4, Basophils % 0.3, Absolute Granulocytes 2.8, Segmented Neutrophils 62, Band Neutrophils 9 H, Absolute Lymphocytes 0.4 L, Lymphocytes 16 L, Monocytes 13 H, Absolute Monocytes 0.6, Absolute Eosinophils 0, Absolute Basophils 0, Platelet Estimate DECREASED, Normocytic RBCs VERIFIED, Normochromic RBCs VERIFIED, PUBS MCHC 33.8 12/13/16 0709: Lyme Disease Antibody 0.22 12/13/16 0709: A.phagocytophil DNA PCR Pending 12/12/168: Lactic Acid 1.0 12/12/16 1919: Lactic Acid 2.8 H 12/12/16 1651: Lactic Acid 4.7 H, CBC w Diff NO MAN DIFF REQ, RBC 3.55 L, MCV 89.6, MCH 30.5, RDW 13.8, MPV 10.2, Gran % 73.7, Lymphocytes % 11.9 L, Monocytes % 14.4 H, Eosinophils % 0, Basophils % 0 L, Absolute Granulocytes 2.4, Absolute Lymphocytes 0.4 L, Absolute Monocytes 0.5, Absolute Eosinophils 0, Absolute Basophils 0, PUBS MCHC 34.0 12/12/16 0640: Anion Gap 5, Estimated GFR 54 L, BUN/Creatinine Ratio 18.5, CBC w Diff NO MAN DIFF REQ, RBC 3.26 L, MCV 89.3, MCH 30.6, RDW 14.1, MPV 10.5 H, Gran % 60.1, Lymphocytes % 19.9 L, Monocytes % 18.9 H, Eosinophils % 0.1, Basophils % 1.0, Absolute Granulocytes 1.1 L, Absolute Lymphocytes 0.4 L, Absolute Monocytes 0.3, Absolute Eosinophils 0, Absolute Basophils 0, PUBS MCHC 34.3 Microbiology 12/13 1707 URINE ROUT: Urine Culture - COMP 12/12 1624 BLOOD: Blood Culture - RES 12/13 1619 BLOOD: Blood Culture - RES Microbiology 12/12 170 URINE ROUT: Urine Culture - COMP 12/12 1624 BLOOD: Blood Culture - RES 12/13 1619 BLOOD: Blood Culture - RES
--- NOTE | 2016-12-20 16:42 | Discharge Summary ---
Visit Information Visit Dates Admission Date: 12/11/16 Discharge Date: 12/14/16 Hospital Course Course Attending Physician: TISHA WALKER MD Primary Care Physician: TISHA WALKER MD Consulting Request: Consulting Specialty: Infectious Disease Consulting Physician: Dr. Canales Reason for Consult: tickborne disease Hospital Course: 71-year-old diabetic, patient likes to outdoors. Patient comes in with a day 02 complaining of weakness noticed some insect bites on his body. Comes to the ER mostly because he felt so weak in his sugars were a little higher than usual. The symptoms in the workup was suggestive for tickborne disease the patient had the femur that came down quickly after he started on doxycycline and his white count is low slowly came up his platelets are chronically low E sugars came down and the patient was stable enough to be discharged on the . The day after discharge blood work showed that he had Anaplasma. The patient will finish to tetracycline course and follow with me as an outpatient Complications: None Allergies: Coded Allergies: venom-honey bee (BEE VENOM (HONEY BEE)) (Severe, ANAPHYLAXIS 11/30/15) aspirin (SWOLLEN FACE - CANT SEE 11/30/15) hornet venom (ANAPHYLAXIS 12/11/16) Pertinent Lab Results: 12/11/16 1632: Lactic Acid Cancelled 12/11/16 1334: Anion Gap 11, Estimated GFR > 60, BUN/Creatinine Ratio 19.1, Glucose 310 H, Hemoglobin A1c Pending, Lactic Acid 1.2, Calcium 9.1, Total Bilirubin 0.9, AST 35, ALT 47, Alkaline Phosphatase 102, Troponin I 0.01, Total Protein 6.2 L, Albumin 3.7, Globulin 2.5, Albumin/Globulin Ratio 1.5, CBC w Diff NO MAN DIFF REQ, RBC 3.52 L, MCV 88.4, MCH 30.2, RDW 14.2, MPV 9.9, Gran % 76.9 H, Lymphocytes % 7.8 L, Monocytes % 14.8 H, Eosinophils % 0.1, Basophils % 0.4, Absolute Granulocytes 2.6, Absolute Lymphocytes 0.3 L, Absolute Monocytes 0.5, Absolute Eosinophils 0, Absolute Basophils 0, PUBS MCHC 34.2 12/11/16 1332: Lactic Acid Cancelled, Troponin I Cancelled 12/11/16 1236: Urinalysis LIGHT H, Urine Color YEL, Urine Clarity CLEAR, Urine pH 6.0, Ur Specific Gerry 1.010, Urine Protein TRACE H, Urine Ketones TRACE H, Urine Nitrite NEG, Urine Bilirubin NEG, Urine Urobilinogen 0.2, Ur Leukocyte Esterase NEG, Ur Microscopic SEDIMENT EXAMINED, Urine RBC 1-3, Urine Bacteria RARE H, Urine Hemoglobin TRACE-INTACT H, Urine Glucose >=1000 H Microbiology 12/11 1424 NASOPHARYN: Influenza Virus A & B Rapid Smear - COMP 12/11 1356 BLOOD: Blood Culture - RECD 12/11 1342 BLOOD: Blood Culture - RECD 12/12/16 1651: Lactic Acid 4.7 H, CBC w Diff NO MAN DIFF REQ, RBC 3.55 L, MCV 89.6, MCH 30.5, RDW 13.8, MPV 10.2, Gran % 73.7, Lymphocytes % 11.9 L, Monocytes % 14.4 H, Eosinophils % 0, Basophils % 0 L, Absolute Granulocytes 2.4, Absolute Lymphocytes 0.4 L, Absolute Monocytes 0.5, Absolute Eosinophils 0, Absolute Basophils 0, PUBS MCHC 34.0 12/12/16 0640: Anion Gap 5, Estimated GFR 54 L, BUN/Creatinine Ratio 18.5, CBC w Diff NO MAN DIFF REQ, RBC 3.26 L, MCV 89.3, MCH 30.6, RDW 14.1, MPV 10.5 H, Gran % 60.1, Lymphocytes % 19.9 L, Monocytes % 18.9 H, Eosinophils % 0.1, Basophils % 1.0, Absolute Granulocytes 1.1 L, Absolute Lymphocytes 0.4 L, Absolute Monocytes 0.3, Absolute Eosinophils 0, Absolute Basophils 0, PUBS MCHC 34.3 12/12/16 2218: Lactic Acid 1.0 12/12/16 1919: 12/14/16 0630: CBC w Diff NO MAN DIFF REQ, RBC 3.14 L, MCV 89.2, MCH 30.3, RDW 13.8, MPV 11.1 H, Gran % 64.6, Lymphocytes % 19.8 L, Monocytes % 14.8 H, Eosinophils % 0.4, Basophils % 0.4, Absolute Granulocytes 2.3, Absolute Lymphocytes 0.7 L, Absolute Monocytes 0.5, Absolute Eosinophils 0, Absolute Basophils 0, PUBS MCHC 33.9 12/13/16 0838: Anion Gap 8, Estimated GFR > 60, BUN/Creatinine Ratio 18.0, CBC w Diff MAN DIFF ORDERED, RBC 3.36 L, MCV 89.8, MCH 30.4, RDW 14.1, MPV 11.4 H, Gran % 72.1, Lymphocytes % 11.5 L, Monocytes % 15.7 H, Eosinophils % 0.4, Basophils % 0.3, Absolute Granulocytes 2.8, Segmented Neutrophils 62, Band Neutrophils 9 H, Absolute Lymphocytes 0.4 L, Lymphocytes 16 L, Monocytes 13 H, Absolute Monocytes 0.6, Absolute Eosinophils 0, Absolute Basophils 0, Platelet Estimate DECREASED, Normocytic RBCs VERIFIED, Normochromic RBCs VERIFIED, PUBS MCHC 33.8 Lactic Acid 2.8 H Disposition Summary Disposition Principal Diagnosis: Anaplasma Additional Diagnosis: Atrial fibrillation Sick sinus syndrome, pacemaker Coronary artery disease Hypertension, hyperlipidemia Diabetes mellitus Kidney stones Discharge Disposition: home health services Discharge Instructions General Discharge Information Code Status: Full Code Patient's Diet: Diabetic, healthy heart Patient's Activity: As tolerated Follow-Up Instructions/Appts: Follow-up with Dr. Walker Medications at Discharge Discharge Medications: Continue taking these medications: Simvastatin (Simvastatin*) 10 MG TABLET 1 Tablet ORAL TAKE AT BEDTIME Qty = 90 Amlodipine Besylate (Amlodipine Besylate) 5 MG TABLET 1 Tablet ORAL DAILY Qty = 90 Comments: LAST GIVEN 12/14/16 @ 1000 Apixaban (Eliquis) 5 MG TABLET 1 Tablet ORAL TWICE DAILY Qty = 180 Comments: LAST GIVEN 12/14/16 @ 1000 Mirabegron (Myrbetriq) 25 MG TAB.ER.24H 1 Tablet ORAL DAILY Qty = 30 Pioglitazone HCl/Metformin HCl (Actoplus Met 15 MG-850 MG Tab) 15 MG-850 MG TABLET 1 Tablet ORAL TWICE DAILY Qty = 180 Olmesartan Medoxomil (Benicar) 40 MG TABLET 1 Tablet ORAL DAILY Qty = 90 Finasteride (Finasteride) 5 MG TABLET 1 Tablet ORAL DAILY Qty = 90 Comments: LAST GIVEN 12/14/16 @ 1000 Start taking the following new medications: Doxycycline Hyclate (Doxycycline Hyclate) 100 MG CAPSULE 100 Milligram ORAL TWICE DAILY Qty = 15 No Refills Comments: LAST GIVEN 12/14/16 @ 1115 Copies To: ROM BROWN,BINA Bethea; BERNARD BROWN,TISHA Attending MD Review Statement Documenting Attending: TISHA WALKER MD
== END 2016-12-14 13:15 | DRG 868 ==
LOC: ENRESERVTM → ENRESERVDT → ERH 12:06 → ERHI 16:13 → 2NB 16:13 → ENPENDDIS 12-14 11:07 → 2NB 12-14 13:15
PROVIDERS: Emergency Medicine; Internal Medicine Hematology & Oncology; Internal Medicine Interventional Cardiology; ADMIT Internal Medicine
DX: A77.49 Other ehrlichiosis (principal); A93.8 Other specified arthropod-borne viral fevers; D69.6 Thrombocytopenia, unspecified; I48.91 Unspecified atrial fibrillation; I49.5 Sick sinus syndrome; E11.9 Type 2 diabetes mellitus without complications; Z79.01 Long term (current) use of anticoagulants; Z95.810 Presence of automatic (implantable) cardiac defibrillator; I25.10 Atherosclerotic heart disease of native coronary artery without angina pectoris; I10 Essential (primary) hypertension; E78.5 Hyperlipidemia, unspecified; M19.90 Unspecified osteoarthritis, unspecified site; Z79.84 Long term (current) use of oral hypoglycemic drugs
CPT/HCPCS: 2NSBP; 86317; 86618; 87798; 36415; 81001; 82436; 87040; 87086; 87804; 87804-59; 93005; 93010; J0131; J1885; J3490

== ENCOUNTER 2018-04-22 11:57 | Emergency (ER) | payer OTHER ==
[~2018-04-22] VITALS: Ht 177.8 cm; Wt 81.6 kg
[~2018-04-22 11:57] MED LIST changes: +ACTOPLUS MET 11 EAC1 PO; +AMLODIPINE BESYL5 M1 PO; +BENICAR40 M1 PO; +DOXYCYCLINE HY100 M2 PO; +ELIQUIS5 M1 PO; +FINASTERIDE5 M1 PO; +MYRBETRIQ25 M1 PO; +SIMVASTATIN10 M1 PO
--- NOTE | 2018-04-22 12:30 | ED GENERAL ADULT ---
History of Present Illness General Chief Complaint: Animal/Insect Bite Stated Complaint: BEE STING TO FACE Source: patient Exam Limitations: no limitations Vital Signs & Intake/Output Vital Signs & Intake/Output Vital Signs Date Time Temp Pulse Resp B/P B/P Pulse O2 O2 Flow FiO2 Mean Ox Delivery Rate 04/22 1334 97.6 84 18 108/60 99 Room Air 04/22 1320 98.4 73 17 104/60 99 Room Air 04/22 1210 98.5 70 16 95/61 97 Room Air Allergies Coded Allergies: venom-honey bee (BEE VENOM (HONEY BEE)) (Severe, ANAPHYLAXIS 11/30/15) aspirin (SWOLLEN FACE - CANT SEE 11/30/15) hornet venom (ANAPHYLAXIS 12/11/16) Reconcile Medications Amlodipine Besylate 5 MG TABLET 1 TAB PO DAILY HEART/BP (Reported) Apixaban (Eliquis) 5 MG TABLET 1 TAB PO BID BLOOD THINNER (Reported) Doxycycline Hyclate 100 MG CAPSULE 100 MG PO BID INFECTION Epinephrine (Epipen) 0.3 MG/0.3 ML AUTO.INJCT 1 INJ IM ONCE PRN anaphylaxis Finasteride 5 MG TABLET 1 TAB PO DAILY PROSTATE (Reported) Mirabegron (Myrbetriq) 25 MG TAB.ER.24H 1 TAB PO DAILY BLADDER (Reported) Olmesartan Medoxomil (Benicar) 40 MG TABLET 1 TAB PO DAILY BP (Reported) Pioglitazone HCl/Metformin HCl (Actoplus Met 15 MG-850 MG Tab) 15 MG-850 MG TABLET 1 TAB PO BID DM (Reported) Simvastatin (Simvastatin*) 10 MG TABLET 1 TAB PO QHS CHOLESTEROL (Reported) Triage Note: RECEIVED 73 YO MALE C/O BIT BY BUMBLE BEE ON OUTER CORNER OF LEFT EYE 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 PT REPORTS SWELLING TO CORNER OF LEFT EYE. NO WHEEZING OR STRIDOR NOTED. LUNGS CTA. PT REPORTS ALLERGIC TO BEE VENOM CHARACTERIZED BY SWELLING. Triage Nurses Notes Reviewed? yes Onset: Abrupt Duration: minute(s): Timing: single episode today HPI: 73-year-old male with a history of coronary artery disease, hypertension, hyperlipidemia, A. fib, sick sinus syndrome (status post pacemaker placement), diabetes presenting with bee sting to left face sustained approximately 30 minutes prior to arrival. Patient has a known allergy to bees, which is why he presented for evaluation. Denies any hives, angioedema, throat tightness, shortness of breath, chest pain, abdominal pain, nausea, vomiting. On arrival to the emergency department patient's blood pressure is noted to be in the 90s, he states this is normal for him as he is on antihypertensive medications. He has not taken any antihistamines prior to arrival. (Allison Palm) Past History Travel History Traveled to [place] past 21 day No Medical History Any Pertinent Medical History? see below for history Neurological: NONE EENT: NONE Cardiovascular: AFIB, CAD, hypertension, hyperlipidemia, SICK SINUS SYNDROME Respiratory: NONE Gastrointestinal: NONE Hepatic: NONE Renal: nephrolithiasis Musculoskeletal: osteoarthritis, HAIRLINE FRACTURES RIBS Psychiatric: NONE Endocrine: diabetes Blood Disorders: NONE Cancer(s): NONE DOCTOR OF NURSE ANESTHESIA PRACTICE/Reproductive: NONE Other Medical Hx: BPH History of MRSA: No History of VRE: No History of CDIFF: No Influenza Vaccine: 07/26/16 Surgical History Surgical History: hernia repair-incisional, PACEMAKER LITHOTRIPSY Psychosocial History Who do you live with Spouse What is your primary language Yi Tobacco Use: Quit >30 days ago Family History Hx Contributory? No (Allison Palm) Review of Systems Review of Systems Constitutional: Reports: no symptoms. EENTM: Reports: no symptoms. Respiratory: Reports: no symptoms. Cardiovascular: Reports: no symptoms. GI: Reports: no symptoms. Genitourinary: Reports: no symptoms. Musculoskeletal: Reports: no symptoms. Skin: Reports: see HPI. Neurological/Psychological: Reports: no symptoms. Hematologic/Endocrine: Reports: no symptoms. Immunologic/Allergic: Reports: no symptoms. All Other Systems: Reviewed and Negative (Allison Palm) Physical Exam Physical Exam General Appearance: well developed/nourished, no apparent distress, alert, awake , comfortable Comments: Gen.: Well-nourished, well-developed, no acute distress. Head: Normocephalic, atraumatic. Eyes: Normal inspection bilaterally Ears: Normal inspection bilaterally Nose: Normal inspection Throat: No oropharyngeal edema, no angioedema Neck: Normal inspection Lungs: clear to auscultation bilaterally, normnal breath sounds, speaking in full sentences Heart: regular rate and rhythm Abdomen: soft and non-tender Extremities: Normal inspection Neurologic: alert and oriented x3, steady gait Skin: warm and dry, 2 punctate wounds to left maxillary arch, no surrounding edema or erythema, no hives Psychiatric: Normal mood and affect, no apparent delusions or hallucinations, behavior appropriate Core Measures ACS in differential dx? No CVA/TIA Diagnosis: No Sepsis Present: No Sepsis Focused Exam Completed? No (Allison Palm) Progress Differential Diagnoses I considered the following diagnoses in my evaluation of the patient: [Bee sting versus allergic reaction versus anaphylaxis] Plan of Care: On arrival to the emergency department patient is not showing any signs of allergic reaction. Given Claritin, Pepcid, and Solu-Medrol prophylactically. Patient monitored for 1.5 hour to assess for signs of allergic reaction, and remains well-appearing with no signs of allergic reaction. His vital signs have remained within normal limits, SBP in the low 100s and 2 readings. Patient cleared for discharge. He will use Claritin or Benadryl as needed for allergic reaction symptoms. Given Rx EpiPen in the event that he develops anaphylaxis. Given strict return precautions. Initial ED EKG: none (Allison Palm) Departure Departure Disposition: HOME OR SELF CARE Condition: Stable Clinical Impression Primary Impression: Bee sting Referrals: Charles Walker MD (PCP/Family) Additional Instructions: Use Benadryl or Claritin over the next 24 hours. Keep your EpiPen on you at all times and use for signs of anaphylaxis. Follow-up with your primary care provider for reevaluation. Return to the emergency department for any new or worsening symptoms. Departure Forms: Customer Survey General Discharge Information Prescriptions: Current Visit Scripts Epinephrine (Epipen) 1 INJ IM ONCE PRN anaphylaxis #1 INJ (Allison Palm) PA/CHECKER/STOCKER Co-Sign Statement Statement: ED Attending supervision documentation- [X] I saw and evaluated the patient. I have also reviewed all the pertinent lab results and diagnostic results. I agree with the findings and the plan of care as documented in the PA's/CHECKER/STOCKER's documentation. [X] I have reviewed the ED Record and agree with the PA's/CHECKER/STOCKER's documentation. [] Additions or exceptions (if any) to the PAs/CHECKER/STOCKER's note and plan are summarized below: [] (Al Dallas DO) Critical Care Note Critical Care Note Critical Care Time: non-applicable (Allison Palm)
[2018-04-22 13:34] VITALS: BP 108/60
[2018-04-22] MEDS ORDERED: EPIPEN0.3 MG/0.1 IM (13:37)
== END 2018-04-22 13:46 ==
LOC: ERH 11:57
DX: T63.441A Toxic effect of venom of bees, accidental (unintentional), initial encounter (principal); Z87.891 Personal history of nicotine dependence